=== PATIENT | female | born 1970 | race Caucasian/White ===

== ENCOUNTER 2021-12-19 11:43 | Inpatient (IN) ==
[2021-12-19 12:20] LABS: Hemoglobin 13.4 g/dL (12.0-16.0); Mean Corpuscular Hemoglobin 29.5 pg (25-34); Mean Corpuscular Hgb Conc 34.4 g/dL (32-36); Mean Corpuscular Volume 85.7 fL (80-100); Mean Platelet Volume 10.8 fL (7.4-10.4); Platelet Count 239 K/uL (130-400); RDW Standard Deviation 40.9 fL (36.4-46.3); Red Blood Count 4.55 M/uL (4.2-5.4); White Blood Count 6.95 K/uL (4.8-10.8)
[2021-12-19 12:31] LABS: Appearance Urine Cloudy (Clear); Bacteria Urine Automated Negative (Negative); Bilirubin Urine Negative (Negative); Blood Urine Negative (Negative); Color Urine Yellow; Epithelial Cell Urine Auto 20-30 /lpf (0-5); Glucose Urine UA 3+ (Negative); Ketones Urine Trace (Negative); Leukocyte Esterase Urine Negative (Negative); Nitrite Urine Negative (Negative); Protein Urine Negative (Negative); Specific Gravity Urine 1.043 (1.000-1.030); Urobilinogen Urine Negative (Negative); pH Urine 5.5 (4.5-7.5)
[2021-12-19 12:54] LABS: ALC (manual) 4.13 K/uL (1.2-3.4); ANC (manual) 2.57 K/uL (1.4-6.5); Basophils # (manual) 0.06 K/uL (0-0.2); Basophils % (manual) 0.9 %; Lymphocytes # (manual) 2.13 K/uL (1.2-3.4); Lymphocytes % (manual) 30.6 %; Monocytes # (manual) 0.19 K/uL (0.11-0.59); Monocytes % (manual) 2.7 %; Neutrophils # (manual) 2.57 K/uL (1.4-6.5); Reactive Lymphocytes % (manual) 28.8 %
[2021-12-19 12:59] LABS: Albumin Globulin Ratio 1.1 (0.9-2); Albumin Level 4.2 gm/dl (3.4-5.0); BUN Creatinine Ratio 10.8 (10-20); Bilirubin,Total 0.5 mg/dl (0.2-1.0); Calcium 9.4 mg/dl (8.5-10.1); Creatinine Clr Calc Pharmacy 71.2 ml/min; Est GFR (African American) 94.6 ml/min; Est GFR (Non-African American) 81.6 ml/min; Globulin 3.7 gm/dl (2.5-4.0); Potassium 3.7 mmol/L (3.5-5.1); Total Protein 7.9 gm/dl (6.0-8.3)
--- NOTE | 2021-12-19 13:01 | XRay Report ---
KUB CLINICAL HISTORY: Generalized abdominal pain. FINDINGS: 2 AP supine abdominal radiographs are correlated with abdominal CT dated 06/15/2021. There i s a nonobstructed abdominal bowel gas pattern. No evidence of intraperitoneal free air is seen on the se supine images. [id number] fecal retention is seen throughout the colon. Surgical clips are s een throughout the abdomen and pelvis. There are no abnormal abdominal calcifications. Phleboliths ar e noted in the pelvis. The liver appears enlarged. The skeletal structures are osteopenic and appear intact. Lumbosacral spondylosis is observed. The lung bases are clear as imaged. IMPRESSION: There is no radiographic evidence of bowel obstruction. Electronically signed by: Tiago Hadley M.D. 12/19/2021 1:00 PM
[2021-12-19] MEDS ORDERED: ONDANSETRON INJ 2 MG/ML 2 ML VIAL IV STA (13:27)
[2021-12-19] MEDS ORDERED: HYDROmorphone INJ 0.5 MG/0.5 ML SYR IV STA ×3 (13:32→22:39)
--- NOTE | 2021-12-19 13:39 | Emergency Department Note ---
History of Present Illness General Chief complaint: GI Assessment Stated complaint: LOWER ABD PAIN Time Seen by Provider: 12/19/21 13:08 Source: patient History of Present Illness Provider complaint: Abdominal pain Onset (ago): hour(s) Location: abdomen and right Radiation: back Pain Consistency: + intermittent Maximum Pain Intensity: 8 Quality: + stabbing Relieved By: + none Associated symptoms: + fever/chills and + nausea/vomiting; no chest pain, no cough or no shortness of breath This is a 51-year-old female with a prior history of SBO presenting with abdominal pain starting at approximately 6 PM yesterday. She describes it as a stabbing pain in the right lower quadrant with intermittent radiation to her back bilaterally. She rates it an 8 out of 10 in severity. No modifying factors. She also started vomiting at 2 AM this morning. She states the vomitus is green. She has not been able to keep down her meds although she is taking her insulin. She does state that her blood sugars have been running up over the past month and a half. She has been to the diabetic clinic multiple times but her sugars are running in the 600s despite their increasing her Humalog sliding scale. She stated that she had a low-grade temperature of 100 last night. She denies any cough or cold symptoms, chest pain, shortness of breath or urinary symptoms. She states that her symptoms feel similar to when she had a previous bowel obstruction. She did have 2 bowel movements this morning at 6 AM and 10 AM. She stated that they seem smaller than her usual. Home Medications Medication Instructions Recorded Confirmed Type allopurinol 100 mg tablet 100 mg PO [facility] 03/01/21 12/19/21 History atorvastatin 80 mg tablet 80 mg PO HS 03/01/21 12/19/21 History duloxetine 30 mg capsule,delayed 30 mg PO 03/01/21 12/19/21 History release sprinkle fluticasone propionate 50 1 spray INTRANASAL BID 03/01/21 12/19/21 History mcg/actuation nasal spray,suspension insulin degludec 100 unit/mL (3 10 unit SUBCUT [facility] 03/01/21 12/19/21 History mL) subcutaneous pen (Tresiba FlexTouch U-100 insulin) metoprolol succinate 25 mg 25 mg PO BID 03/01/21 12/19/21 History tablet,extended release 24 hr quetiapine 25 mg tablet 25 mg PO HS 03/01/21 12/19/21 History ropinirole 0.25 mg tablet 0.25 mg PO HS 03/01/21 12/19/21 History tizanidine 4 mg capsule (Zanaflex) 4 mg PO BID 03/01/21 12/19/21 History famotidine 20 mg tablet 20 mg PO BID #20 tab 03/13/21 12/19/21 Rx docusate sodium 100 mg capsule 100 mg PO BID #30 cap 05/14/21 12/19/21 Rx (Colace) insulin aspart U-100 100 unit/mL 0 sliding scale dose SUBCUT UD 12/19/21 12/19/21 History (3 mL) subcutaneous pen ondansetron 8 mg disintegrating 8 mg TRANSLINGUAL DAILY PRN 12/19/21 12/19/21 History tablet Allergies Allergy/AdvReac Type Severity Reaction Status Date / Time ciprofloxacin [From Cipro] AdvReac Unknown Verified 12/19/21 15:07 Past Med/Surg History Medical History Anxiety Depression Diverticulitis Endometriosis GERD (gastroesophageal reflux disease) Migraine SBO (small bowel obstruction) Surgical History H/O hernia repair H/O tubal ligation History of bowel resection "due to SBO" History of hysterectomy S/P cholecystectomy Family History (Updated 12/19/21 @ 19:09 by Shruthi Castle DO) Father Crohn's disease Parkinsons Social History (Updated 12/19/21 @ 19:09 by Shruthi Castle DO) Smoking Status: Never smoker Hx Alcohol Use: No Hx Substance Use: No Preferred Language: Estonian marital status: Current Living Situation: Spouse current occupational status: disabled Feels Safe at Home: Yes Review of Systems See HPI for pertinent positives & negatives. and A total of 10 systems reviewed and were otherwise negative Physical Exam Vital Signs Vital Signs - 24 hr 12/19/21 11:47 12/19/21 13:30 12/19/21 15:12 Temperature 36.2 C L Temperature Source Temporal Artery Scan Pulse Rate 112 H Pulse Rate [Left Apical] 129 H 150 H Pulse Rhythm [Left Apical] Regular Pulse Strength [Left Apical] Respiratory Rate 16 22 20 Respiratory Effort / Characteristics Non-Labored Spontaneous Non-Labored Spontaneous Respiratory Depth Normal Normal Respiratory Pattern Regular Blood Pressure 147/87 H Blood Pressure [Right Arm] 141/101 H 172/117 H Blood Pressure Mean 107 Blood Pressure Mean [Right Arm] 114 135 Blood Pressure Position Sitting Blood Pressure Position [Right Arm] Lying Pulse Oximetry 98 97 97 Oxygen Delivery Method Room Air Room Air Sepsis Recent Fever Within 48 Hours No Sepsis New/Unexplained Change in Mental Status N/A Sepsis Action Taken by Nursing No Action Required 12/19/21 17:01 12/19/21 19:00 Temperature 36.9 C Temperature Source Oral Pulse Rate Pulse Rate [Left Apical] 123 H 82 Pulse Rhythm [Left Apical] Regular Pulse Strength [Left Apical] Normal Respiratory Rate 20 20 Respiratory Effort / Characteristics Non-Labored Spontaneous Respiratory Depth Normal Respiratory Pattern Blood Pressure Blood Pressure [Right Arm] 171/117 H Blood Pressure Mean Blood Pressure Mean [Right Arm] 135 Blood Pressure Position Blood Pressure Position [Right Arm] Pulse Oximetry 97 96 Oxygen Delivery Method Room Air Room Air Sepsis Recent Fever Within 48 Hours Sepsis New/Unexplained Change in Mental Status Sepsis Action Taken by Nursing Constitutional: Vital signs reviewed. Rocking back and forth in pain. Eyes: Pupils are equal round reactive to light. Conjunctiva are noninjected. ENT: Pharynx is clear without erythema or exudate. Mucous membranes are dry. Neck supple without meningeal signs. Respiratory: Clear to auscultation bilaterally. Breath sounds are equal bilaterally. Cardiovascular: Mild tachycardia. Regular rhythm. GI: Soft, nondistended with tenderness in the right lower quadrant with voluntary guarding. Bowel sounds are present. Musculoskeletal: No peripheral edema. No lower extremity tenderness. Integumentary: No cyanosis. or jaundice. Neurological: The patient is awake and alert. No focal deficits. Psychiatric: Normal affect. Course Administered Medications Discontinued Medications Acetaminophen (Acetaminophen 1000 Mg/100 Ml Iv) 1,000 mg IV ONE STA Stop: 12/19/21 17:43 Last Admin: 12/19/21 17:53 Dose: 1,000 mg Documented by: [id number] Hydromorphone HCl (Hydromorphone Inj 0.5 Mg/0.5 Ml Syr) 0.5 mg IV NOW STA Stop: 12/19/21 13:33 Last Admin: 12/19/21 13:45 Dose: 0.5 mg Documented by: [id number] Hydromorphone HCl (Hydromorphone Inj 0.5 Mg/0.5 Ml Syr) 0.25 mg IV NOW STA Stop: 12/19/21 16:14 Last Admin: 12/19/21 16:46 Dose: 0.25 mg Documented by: [id number] Hyoscyamine (Hyoscyamine Sulfate 0.125 Mg Tab) 0.125 mg SL NOW STA Stop: 12/19/21 14:54 Last Admin: 12/19/21 15:26 Dose: 0.125 mg Documented by: [id number] Sodium Chloride (Nss 1000ml) 1,000 mls @ 999 mls/hr IV .Q1H1M ONE Stop: 12/19/21 14:49 Last Infusion: 12/19/21 16:13 Dose: 0 mls/hr Documented by: [id number] Admin: 12/19/21 14:28 Dose: 999 mls/hr Documented by: [id number] Prochlorperazine (Compazine) 2 mls @ 1 mls/min IV ONE ONE Stop: 12/19/21 17:42 Last Admin: 12/19/21 17:53 Dose: 1 mls/min Documented by: [id number] Insulin Human Regular (Novolin-R Insulin Per Unit Charge) 7 units IV NOW STA Stop: 12/19/21 13:50 Last Admin: 12/19/21 14:28 Dose: 7 units Documented by: [id number] Cosigned by: [id number] Lorazepam (Lorazepam 2 Mg/1 Ml Vial) 0.25 mg IV NOW STA Stop: 12/19/21 16:14 Last Admin: 12/19/21 16:46 Dose: 0.25 mg Documented by: [id number] Ondansetron HCl (Ondansetron Inj 2 Mg/Ml 2 Ml Vial) 4 mg IV NOW STA Stop: 12/19/21 13:28 Last Admin: 12/19/21 13:45 Dose: 4 mg Documented by: [id number] Medical Decision Making Differential Diagnosis Small bowel obstruction, partial bowel obstruction, dehydration, gastritis, gastroparesis, electrolyte abnormality, adhesions Medical Records Attestation: I reviewed the patient's medical records. I did perform a limited focused review of portions of the patient's old chart on the electronic medical record. The patient was seen here in June of last year for similar abdominal pain and vomiting. She had a CT of the abdomen pelvis and did not have a bowel obstruction at that time. She was discharged after evaluation in the ED. Home Medications Current Medication List: was personally reviewed by me Laboratory Data Result diagrams: 12/19/21 12:01 12/19/21 12:01 Lab Results 12/19/21 12/19/21 12/19/21 Range/Units 12:01 12:01 12:01 WBC 6.95 (4.8-10.8) K/uL RBC 4.55 (4.2-5.4) M/uL Hgb 13.4 (12.0-16.0) g/dL Hct 39.0 (37-47) % MCV 85.7 (80-100) fL MCH 29.5 (25-34) pg MCHC 34.4 (32-36) g/dL RDW Std Deviation 40.9 (36.4-46.3) fL RDW Coeff of Bernabe 13.0 (11.5-14.5) % Plt Count 239 (130-400) K/uL MPV 10.8 H (7.4-10.4) fL Neutrophils % (Manual) 37.0 % Lymphocytes % (Manual) 30.6 % Reactive Lymphs % (Man) 28.8 % Monocytes % (Manual) 2.7 % Basophils % (Manual) 0.9 % Neutrophils # (Manual) 2.57 (1.4-6.5) K/uL Total Absolute Neuts 2.57 (1.4-6.5) K/uL Lymphocytes # (Manual) 2.13 (1.2-3.4) K/uL Reactive Lymphs # 2.00 K/uL Total Abs Lymphocytes 4.13 H (1.2-3.4) K/uL Monocytes # (Manual) 0.19 (0.11-0.59) K/uL Basophils # (Manual) 0.06 (0-0.2) K/uL Sodium 131 L (136-145) mmol/L Potassium 3.7 (3.5-5.1) mmol/L Chloride 96 L (98-107) mmol/L Carbon Dioxide 25 (21-32) mmol/L Anion Gap 10 (3-11) BUN 9 (6-23) mg/dl Creatinine 0.83 (0.6-1.2) mg/dl Est Cr Clr Drug Dosing 71.2 ml/min Est GFR ( Amer) 94.6 ml/min Est GFR (Non-Af Amer) 81.6 ml/min BUN/Creatinine Ratio 10.8 (10-20) Glucose 458 H* (70-99(Fasting)) mg/dl POC Glucose (70-99) mg/dl Calcium 9.4 (8.5-10.1) mg/dl Total Bilirubin 0.5 (0.2-1.0) mg/dl AST 15 (13-39) U/L ALT 16 (7-52) U/L Alkaline Phosphatase 186 H (34-104) U/L Total Protein 7.9 (6.0-8.3) gm/dl Albumin 4.2 (3.4-5.0) gm/dl Globulin 3.7 (2.5-4.0) gm/dl Albumin/Globulin Ratio 1.1 (0.9-2) Lipase 55 (11-82) U/L Urine Color Yellow Urine Appearance Cloudy A (Clear) Urine pH 5.5 (4.5-7.5) Ur Specific Steward 1.043 H (1.000-1.030) Urine Protein Negative (Negative) Urine Glucose (UA) 3+ H (Negative) Urine Ketones Trace H (Negative) Urine Blood Negative (Negative) Urine Nitrite Negative (Negative) Urine Bilirubin Negative (Negative) Urine Urobilinogen Negative (Negative) Ur Leukocyte Esterase Negative (Negative) Urine WBC (Auto) 10-30 H (0-5) /hpf Urine RBC (Auto) 10-30 H (0-4) /hpf U Hyaline Cast (Auto) 1-5 (0-5) /lpf U Epithel Cells (Auto) 20-30 H (0-5) /lpf Urine Bacteria (Auto) Negative (Negative) Urine Crystals Talc (None Prsent) 12/19/21 Range/Units 15:09 WBC (4.8-10.8) K/uL RBC (4.2-5.4) M/uL Hgb (12.0-16.0) g/dL Hct (37-47) % MCV (80-100) fL MCH (25-34) pg MCHC (32-36) g/dL RDW Std Deviation (36.4-46.3) fL RDW Coeff of Bernabe (11.5-14.5) % Plt Count (130-400) K/uL MPV (7.4-10.4) fL Neutrophils % (Manual) % Lymphocytes % (Manual) % Reactive Lymphs % (Man) % Monocytes % (Manual) % Basophils % (Manual) % Neutrophils # (Manual) (1.4-6.5) K/uL Total Absolute Neuts (1.4-6.5) K/uL Lymphocytes # (Manual) (1.2-3.4) K/uL Reactive Lymphs # K/uL Total Abs Lymphocytes (1.2-3.4) K/uL Monocytes # (Manual) (0.11-0.59) K/uL Basophils # (Manual) (0-0.2) K/uL Sodium (136-145) mmol/L Potassium (3.5-5.1) mmol/L Chloride (98-107) mmol/L Carbon Dioxide (21-32) mmol/L Anion Gap (3-11) BUN (6-23) mg/dl Creatinine (0.6-1.2) mg/dl Est Cr Clr Drug Dosing ml/min Est GFR ( Amer) ml/min Est GFR (Non-Af Amer) ml/min BUN/Creatinine Ratio (10-20) Glucose (70-99(Fasting)) mg/dl POC Glucose 218 H (70-99) mg/dl Calcium (8.5-10.1) mg/dl Total Bilirubin (0.2-1.0) mg/dl AST (13-39) U/L ALT (7-52) U/L Alkaline Phosphatase (34-104) U/L Total Protein (6.0-8.3) gm/dl Albumin (3.4-5.0) gm/dl Globulin (2.5-4.0) gm/dl Albumin/Globulin Ratio (0.9-2) Lipase (11-82) U/L Urine Color Urine Appearance (Clear) Urine pH (4.5-7.5) Ur Specific Steward (1.000-1.030) Urine Protein (Negative) Urine Glucose (UA) (Negative) Urine Ketones (Negative) Urine Blood (Negative) Urine Nitrite (Negative) Urine Bilirubin (Negative) Urine Urobilinogen (Negative) Ur Leukocyte Esterase (Negative) Urine WBC (Auto) (0-5) /hpf Urine RBC (Auto) (0-4) /hpf U Hyaline Cast (Auto) (0-5) /lpf U Epithel Cells (Auto) (0-5) /lpf Urine Bacteria (Auto) (Negative) Urine Crystals (None Prsent) Imaging Data Radiologist's Impression: KUB X-Ray 12/19/21 11:52 KUB CLINICAL HISTORY: Generalized abdominal pain. FINDINGS: 2 AP supine abdominal radiographs are correlated with abdominal CT dated 06/15/2021. There is a nonobstructed abdominal bowel gas pattern. No evidence of intraperitoneal free air is seen on these supine images. [id number] fecal retention is seen throughout the colon. Surgical clips are seen throughout the abdomen and pelvis. There are no abnormal abdominal calcifications. Phleboliths are noted in the pelvis. The liver appears enlarged. The skeletal structures are osteopenic and appear intact. Lumbosacral spondylosis is observed. The lung bases are clear as imaged. IMPRESSION: There is no radiographic evidence of bowel obstruction. Electronically signed by: Tiago Hadley M.D. 12/19/2021 1:00 PM Abdomen/Pelvis CT 12/19/21 13:27 CT abd pelvis wo con CLINICAL HISTORY: intractable n/v. hx of sbo. severe lower abd pain TECHNIQUE: Helical axial images of the abdomen and pelvis were obtained. Automated dose lowering techniques and/or adjustment according to patient size were utilized for this exam. This exam was performed without intravenous contrast. COMPARISON: Comparison is made to CT abdomen pelvis 06/15/2021 FINDINGS: Lower chest: No acute abnormality Liver: Hepatic steatosis is noted. Gallbladder and biliary tree: Patient is status post cholecystectomy. No intra- or extrahepatic biliary ductal dilation. Pancreas: Fatty replacement of the pancreas is seen. Spleen: Unremarkable. Adrenals: Unremarkable. Kidneys and ureters: Unremarkable. Bladder: Bladder contents are minimally hyperdense, nonspecific. Reproductive organs: Patient is status post hysterectomy. Bowel: Diverticulosis is seen without evidence of diverticulitis. Postsurgical changes are noted in the small bowel. There is a small hiatal hernia. Proximal jejunal loops are prominent, measuring up to 28 mm, but nondilated. Lymph nodes Retroperitoneal: Unremarkable. Mesenteric: Unremarkable. Pelvic: Unremarkable. Peritoneum: A hernia mesh is noted in the anterior abdominal wall. Vessels: Unremarkable. Abdominal wall: Unremarkable. Bones: Degenerative changes in the visualized spine. IMPRESSION: 1. No evidence of small bowel obstruction. Postsurgical changes are seen in the small bowel. 2. Diverticulosis without diverticulitis. 3. Mild hyperdensity in bladder contents, correlation with urinalysis is recommended. 4. Additional findings as above. ACT 112: Negative or not required by law. Electronically signed by: Abhishek Harkins M.D. 12/19/2021 2:32 PM ECG Data Attestation: I personally reviewed and interpreted this ECG as follows: Indication: + abdominal pain, + tachycardia and + vomiting Rate (beats per minute): 119 Rhythm: + sinus tachycardia ECG [place]: + Normal ECG ST segments: no ST elevation ECG Findings: no PVCs MDM Narrative I did evaluate the patient as noted above. IV access was established. She was treated with IV Zofran and Dilaudid. I did place an order for continuous cardia c monitoring. The monitor showed sinus tachycardia at rate of 103 bpm. Twelve- lead EKG per my interpretation demonstrates no acute ischemic symptoms. She has sinus tachycardia. I did personally reviewed the images of the patient's KUB x- ray as described above. She does not have evidence of obstruction. I did order a urine analysis. She has some WBCs as well as RBCs and epithelial cells with out other signs of UTI. She has 3+ glucose and trace ketones. I did review the patient's blood work as noted in the electronic medical record. Her white count is not elevated. Hemoglobin is 13.4. Platelet is 239. Electrolytes demonstrate a sodium of 131 which is likely pseudohyponatremia from her glucose of 458. I did treat the patient with normal saline 1 L IV and regular insulin 7 units IV. Chloride is 96. LFTs are unremarkable other than a alk phos of 186. Lipase is 55. After discussion with the patient, I did order a CT of the abdomen and pelvis. I did review the images myself as well as the radiology report as described above. There is no evidence of acute intra-abdominal p rocess or bowel obstruction. We were able to get records from the [facility] system. Apparently she was at [facility] 2 days ago and had a negative CT of the abdomen pelvis at that time. She did not mention this earlier. She is currently still writhing in pain and requesting more pain medication. She is continually tachycardic as well. It is unclear whether or not narcotics would be beneficial for her given that she has decreased GI mobility and this could certainly exacerbate it. As an alternative she requested an NG tube. It was explained to her that there was no current indication for an NG tube but she insisted stating that it has helped her in the past. The potential risks were explained to her including visceral rupture and placement in the lungs or other complications. She did agree to NG tube placement which was done by the nurse without complication. She had no relief of her symptoms. She is requesting admission as she states that she cannot keep anything down and is having intractable pain. Repeat blood sugar is 218. The case was discussed with the hospitalist and hospice case manager. A Covid test was obtained. Resident Physician Supervision Note: I did perform an independent evaluation and examination of this patient as described. I also saw this patient in conjunction with the resident, Dr. Hammond, and guided management for the patient. Impression & Plan Intractable right lower quadrant abdominal pain, Intractable vomiting with nausea, Acute hyperglycemia Discharge Plan Visit Data Chief Complaint: GI Assessment Stated Complaint: LOWER ABD PAIN ED Provider: Tate Amor ED Midlevel Provider: Lauro Hammond Discharge Problem: Intractable right lower quadrant abdominal pain, Intractable vomiting with nausea, Acute hyperglycemia Patient Disposition: Being Evaluated by Hospitalist Forms Stand Alone Forms: My [facility], Virtual Emergency Department, Important Visit Information Prescriptions Prescriptions: No Action quetiapine 25 mg Tablet 25 mg PO HS RF: 0 atorvastatin 80 mg Tablet 80 mg PO HS RF: 0 allopurinol 100 mg Tablet 100 mg PO QAM RF: 0 ropinirole 0.25 mg Tablet 0.25 mg PO HS RF: 0 metoprolol succinate 25 mg Tablet Extended Release 24 Hr 25 mg PO BID RF: 0 fluticasone propionate [Flonase] 50 mcg/actuation [place],Suspension 1 spray INTRANASAL BID RF: 0 tizanidine [Zanaflex] 4 mg Capsule 4 mg PO BID RF: 0 Tresiba FlexTouch U-100 100 unit/mL (3 mL) insulin pen 10 unit SUBCUT QAM RF: 0 duloxetine 30 mg Capsule, Delayed Rel Sprinkle 30 mg PO HS RF: 0 docusate sodium [Colace] 100 mg capsule 100 mg PO BID Qty: 30 RF: 0 ondansetron 8 mg tablet,disintegrating 8 mg translingual DAILY PRN (Reason: Nausea And Vomiting) RF: 0 insulin aspart U-100 100 unit/mL (3 mL) insulin pen 0 sliding scale dose SUBCUT UD RF: 0 famotidine 20 mg tablet 20 mg PO BID Qty: 20 RF: 0 Referrals Referrals: Martin Nicholas PA-C [Outside Practitioners] - Resident Activity Tracking Resident Involvement: Resident Care Provided Care Provided: Adult ED Addendum December 19, 2021 16:55 I participated in the care of this patient. Please see attending Dr. Amor's documentation.
[2021-12-19] MEDS ORDERED: SODIUM CHLORIDE 0.9% 1000ML 1,000 ML IV ONE (13:49)
[2021-12-19] MEDS ORDERED: NovoLIN-R INSULIN PER UNIT CHARGE IV STA (13:49)
--- NOTE | 2021-12-19 14:33 | CT Scan Report ---
CT abd pelvis wo con CLINICAL HISTORY: intractable n/v. hx of sbo. severe lower abd pain TECHNIQUE: Helical axial images of the abdomen and pelvis were obtained. Automated dose lowering tech niques and/or adjustment according to patient size were utilized for this exam. This exam was perfor med without intravenous contrast. COMPARISON: Comparison is made to CT abdomen pelvis 06/15/2021 FINDINGS: Lower chest: No acute abnormality Liver: Hepatic steatosis is noted. Gallbladder and biliary tree: Patient is status post cholecystectomy. No intra- or extrahepatic bilia ry ductal dilation. Pancreas: Fatty replacement of the pancreas is seen. Spleen: Unremarkable. Adrenals: Unremarkable. Kidneys and ureters: Unremarkable. Bladder: Bladder contents are minimally hyperdense, nonspecific. Reproductive organs: Patient is status post hysterectomy. Bowel: Diverticulosis is seen without evidence of diverticulitis. Postsurgical changes are noted in t he small bowel. There is a small hiatal hernia. Proximal jejunal loops are prominent, measuring up to 28 mm, but nondilated. Lymph nodes Retroperitoneal: Unremarkable. Mesenteric: Unremarkable. Pelvic: Unremarkable. Peritoneum: A hernia mesh is noted in the anterior abdominal wall. Vessels: Unremarkable. Abdominal wall: Unremarkable. Bones: Degenerative changes in the visualized spine. IMPRESSION: 1. No evidence of small bowel obstruction. Postsurgical changes are seen in the small bowel. 2. Diverticulosis without diverticulitis. 3. Mild hyperdensity in bladder contents, correlation with urinalysis is recommended. 4. Additional findings as above. ACT 112: Negative or not required by law. Electronically signed by: Abhishek Harkins M.D. 12/19/2021 2:32 PM
[2021-12-19] MEDS ORDERED: HYOSCYAMINE SULFATE 0.125 MG TAB SL STA (14:53)
[2021-12-19] MEDS ORDERED: LORazepam 2 MG/1 ML VIAL IV STA (16:13)
[2021-12-19] MEDS ORDERED: PROCHLORPERAZINE 2 ML IV ONE (17:41)
[2021-12-19] MEDS ORDERED: ACETAMINOPHEN 1000 MG/100 ML IV IV STA (17:42)
--- NOTE | 2021-12-19 19:09 | History & Physical Report ---
Date of Service December 19, 2021 Assessment & Plan (1) Intractable right lower quadrant abdominal pain: Plan: Severe abdominal pain followed by vomiting and some loose stool. 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 Last surgery was hernia repair in 2010. Since that time she has noted some issues with SBO but with a higher frequency during the last two years. Incidentally, she also reports uncontrolled blood sugar during this time. She doesn't feel these are related and has no known h/o gastroparesis. She asked for an NG tube to be placed when the narcotic medication was not improving the abdominal pain. This didn't return much but there was a bloody look to what was suctioned. She reports feeling much better after this was placed. Will plan to continue the NG tube at this time and provide supportive care including IV fluids. Will consult surgery with her history of SBO and improvement with NG tube placement. Although I don't think she is actively bleeding internally, will add protonix 40 IV BID with the return of blood after her NG tube, and will consult GI. Cont pepcid per home regimen. (2) Intractable vomiting with nausea: Plan: Improved with NG tube placement, antiemetics. Cont current care. Cont IVF and replace lytes as needed. (3) DMII (diabetes mellitus, type 2): Plan: Uncontrolled A1C os 8.4 in Oct 2021 with it being around 9 since Fall 2020. Hold her home insulin and continue her on Lantus 10 Units qHS (50% of recommended dose for her weight as she is NPO) and Novolog for correction factor. Will need to add carb coverage once she starts eating again. (4) Elevated blood pressure reading: Plan: situational as patient is in moderate distress with her abdominal pain. Cont Toprol per home regimen. (5) Tachycardia: Plan: Likely related to dehydration and stress/pain. Cont IVF overnight and check/replete lytes as needed in am. (6) Anxiety and depression: Plan: Chronic, stable. Cont Cymbalta and Seroquel per outpatient regimen. (7) Bipolar disorder: Plan: Chronic, stable. Cont seroquel per outpatient med regimen. (8) DVT prophylaxis: Plan: SCDs, no chemoprophylaxis with blood in suction canister. Full Code Dispo-to PCU DO [facility] History of Present Illness Chief Complaint: abdominal pain Primary Care Provider: King Braun MD worsened acute abdominal pain started 6p last night, followed by loose stool and then vomiting supper was at 3pm, sausage and potatoes au gratin-no one else sick around her with any gastroenteritis symptoms. she continued to produce bilious vomitus that was green all night and had severe nausea and centralized abdominal pain pain radiated around to her posterior like a belt this was exactly the same presentation she had last year 8 times and then 6 times the year before. Fever 100.1F last night some loose stool, not described as diarrhea. no CP or SOB nausea is not as bad curently and she reports the NGT, which was elective as no SBO is seen on imaging, has helped her pain dilaudid is also helping. no urinary issues. last surgery was hernia repair which was 2010 2008-adhesion removal where she had an intraoperative complication resulting in a partial bowel resection. she reports her blood sugars have been high lately and she presented with a sugar close to 500 today, better with IV insulin given in the ER reports no recent changes in her medications. Allergies Allergy/AdvReac Type Severity Reaction Status Date / Time ciprofloxacin [From Cipro] AdvReac Unknown Verified 12/19/21 15:07 Home Medications Medication Instructions Recorded Confirmed Type allopurinol 100 mg tablet 100 mg PO QAM 03/01/21 12/19/21 History atorvastatin 80 mg tablet 80 mg PO HS 03/01/21 12/19/21 History duloxetine 30 mg capsule,delayed 30 mg PO HS 03/01/21 12/19/21 History release sprinkle fluticasone propionate 50 1 spray INTRANASAL BID 03/01/21 12/19/21 History mcg/actuation nasal spray,suspension insulin degludec 100 unit/mL (3 10 unit SUBCUT QAM 03/01/21 12/19/21 History mL) subcutaneous pen (Tresiba FlexTouch U-100 insulin) quetiapine 25 mg tablet 25 mg PO HS 03/01/21 12/19/21 History ropinirole 0.25 mg tablet 0.25 mg PO HS 03/01/21 12/19/21 History tizanidine 4 mg capsule (Zanaflex) 4 mg PO BID 03/01/21 12/19/21 History famotidine 20 mg tablet 20 mg PO BID #20 tab 03/13/21 12/19/21 Rx docusate sodium 100 mg capsule 100 mg PO BID #30 cap 05/14/21 12/19/21 Rx (Colace) insulin aspart U-100 100 unit/mL 0 sliding scale dose SUBCUT UD 12/19/21 12/19/21 History (3 mL) subcutaneous pen magnesium oxide 250 mg PO DAILY 12/19/21 12/19/21 History metoprolol succinate 50 mg 50 mg PO BID 12/19/21 12/19/21 History tablet,extended release 24 hr ondansetron 8 mg disintegrating 8 mg TRANSLINGUAL DAILY PRN 12/19/21 12/19/21 History tablet potassium chloride 20 mEq 20 meq PO DAILY 12/19/21 12/19/21 History tablet,extended release(part/cryst) (Klor-Con M) Past Med/Surg History Medical History (Updated 12/19/21 @ 20:26 by Shruthi Castle DO) Anxiety and depression Bipolar disorder Depression Diverticulitis DMII (diabetes mellitus, type 2) Endometriosis GERD (gastroesophageal reflux disease) Migraine SBO (small bowel obstruction) Surgical History H/O hernia repair H/O tubal ligation History of bowel resection "due to SBO" History of hysterectomy S/P cholecystectomy Family History Father Crohn's disease Parkinsons Social History Smoking Status: Never smoker Hx Alcohol Use: No Hx Substance Use: No Preferred Language: Egyptian marital status: Current Living Situation: Spouse current occupational status: disabled Feels Safe at Home: Yes Review of Systems Review of Systems: All systems were reviewed and negative except as indicated in HPI above. Physical Exam Physical Exam: CONSTITUTIONAL: WNWD, vitals as above, generally well- appearing, NAD EYES: normal conjunctivae, no scleral icterus, eyes are puffy but not red. ENT: external ear and nose normal, NGT in place with bloody output. NECK: trachea midline RESPIRATORY: clear to auscultation bilaterally, no crackles, rales or wheezes, normal respiratory effort CARDIOVASCULAR: tachy rate and rhythm, S1 and 2 heard without murmurs, gallops or rubs, no JVD, no peripheral edema CHEST: inspection of chest was normal, there is a port present on the right anterior chest. GASTROINTESTINAL: soft, TTP worse on the right side, ND, no guarding MUSCULOSKELETAL: strength 5/5 throughout, head is normocephalic and atraumatic,a mbulatory SKIN: warm and dry NEUROLOGIC: CN 2-12 grossly intact, no sensory deficit, normal cognition, normal speech, some resting tremors in her legs. PSYCHIATRIC: alert cooperative and oriented to person, place and time. Euthymic mood, makes good eye contact, language grossly intact, recent and remote memory grossly intact. Results & Data Results & Data ([facility]) Vital Signs (Past 12 Hours) Vital Signs Temp Pulse Pulse Resp BP BP Pulse Ox 12/19/21 17:01 123 H 20 97 12/19/21 15:12 150 H 20 172/117 H 97 12/19/21 13:30 129 H 22 141/101 H 97 12/19/21 11:47 36.2 C L 112 H 16 147/87 H 98 Laboratory Results Short CBC 12/19/21 Range/Units 12:01 WBC 6.95 (4.8-10.8) K/uL Hgb 13.4 (12.0-16.0) g/dL Hct 39.0 (37-47) % Plt Count 239 (130-400) K/uL BMP 12/19/21 12:01 Sodium 131 L Potassium 3.7 Chloride 96 L Carbon Dioxide 25 BUN 9 Creatinine 0.83 Glucose 458 H* Calcium 9.4 Liver Function 12/19/21 Range/Units 12:01 Total Bilirubin 0.5 (0.2-1.0) mg/dl AST 15 (13-39) U/L ALT 16 (7-52) U/L Alkaline Phosphatase 186 H (34-104) U/L Albumin 4.2 (3.4-5.0) gm/dl Urine 12/19/21 Range/Units 12:01 Urine Color Yellow Urine Appearance Cloudy A (Clear) Urine pH 5.5 (4.5-7.5) Ur Specific [place] 1.043 H (1.000-1.030) Urine Protein Negative (Negative) Urine Glucose (UA) 3+ H (Negative) Diagnostic Findings KUB X-Ray 12/19/21 11:52 KUB CLINICAL HISTORY: Generalized abdominal pain. FINDINGS: 2 AP supine abdominal radiographs are correlated with abdominal CT dated 06/15/2021. There is a nonobstructed abdominal bowel gas pattern. No evidence of intraperitoneal free air is seen on these supine images. [id number] fecal retention is seen throughout the colon. Surgical clips are seen throughout the abdomen and pelvis. There are no abnormal abdominal calcifications. Phleboliths are noted in the pelvis. The liver appears enlarged. The skeletal structures are osteopenic and appear intact. Lumbosacral spondylosis is observed. The lung bases are clear as imaged. IMPRESSION: There is no radiographic evidence of bowel obstruction. Electronically signed by: Tiago Hadley M.D. 12/19/2021 1:00 PM Abdomen/Pelvis CT 12/19/21 13:27 CT abd pelvis wo con CLINICAL HISTORY: intractable n/v. hx of sbo. severe lower abd pain TECHNIQUE: Helical axial images of the abdomen and pelvis were obtained. Automated dose lowering techniques and/or adjustment according to patient size were utilized for this exam. This exam was performed without intravenous contrast. COMPARISON: Comparison is made to CT abdomen pelvis 06/15/2021 FINDINGS: Lower chest: No acute abnormality Liver: Hepatic steatosis is noted. Gallbladder and biliary tree: Patient is status post cholecystectomy. No intra- or extrahepatic biliary ductal dilation. Pancreas: Fatty replacement of the pancreas is seen. Spleen: Unremarkable. Adrenals: Unremarkable. Kidneys and ureters: Unremarkable. Bladder: Bladder contents are minimally hyperdense, nonspecific. Reproductive organs: Patient is status post hysterectomy. Bowel: Diverticulosis is seen without evidence of diverticulitis. Postsurgical changes are noted in the small bowel. There is a small hiatal hernia. Proximal jejunal loops are prominent, measuring up to 28 mm, but nondilated. Lymph nodes Retroperitoneal: Unremarkable. Mesenteric: Unremarkable. Pelvic: Unremarkable. Peritoneum: A hernia mesh is noted in the anterior abdominal wall. Vessels: Unremarkable. Abdominal wall: Unremarkable. Bones: Degenerative changes in the visualized spine. IMPRESSION: 1. No evidence of small bowel obstruction. Postsurgical changes are seen in the small bowel. 2. Diverticulosis without diverticulitis. 3. Mild hyperdensity in bladder contents, correlation with urinalysis is recommended. 4. Additional findings as above. ACT 112: Negative or not required by law. Electronically signed by: Abhishek Harkins M.D. 12/19/2021 2:32 PM Code Status & VTE Plan VTE Prophylaxis Plan VTE Prophylaxis will be ordered: Yes
[2021-12-19] MEDS ORDERED: GLUCOSE 10 TABS/TUBE PO PRN (21:52)
[2021-12-19] MEDS ORDERED: DEXTROSE 50% 50 ML SYRINGE IV PRN (21:52)
[2021-12-19] MEDS ORDERED: INSULIN GLARGINE SOLOSTAR 100 UNITS/ML 3 ML PEN SC SCH (21:52)
[2021-12-19] MEDS ORDERED: CARBOHYDRATES FOR HYPOGLYCEMIA PO PRN (21:52)
[2021-12-19] MEDS ORDERED: GLUCAGON FOR INJ 1 MG VIAL SQ PRN (21:52)
[2021-12-19] MEDS ORDERED: POLYETHYLENE (MIRALAX) 17 GM PACK PO PRN (21:52)
[2021-12-19] MEDS ORDERED: GLUCOSE 40% GEL 15 GM TUBE PO PRN (21:52)
[2021-12-19] MEDS: FAMOTIDINE 20 MG in SYRINGE 3 ML IV SCH (22:20)
[2021-12-19] MEDS: METOPROLOL SUCC 50MG EXT REL TAB PO SCH (22:20)
[2021-12-19] MEDS: PANTOprazole 40 MG in SYRINGE 0 ML IV SCH (22:20)
[2021-12-19] MEDS: QUEtiapine FUMARATE 25 MG TABLET PO SCH (22:20)
[2021-12-19] MEDS: rOPINIRole HCL 0.25 MG TABLET PO SCH (22:20)
[2021-12-19] MEDS: SODIUM CHLORIDE 0.9% 1000ML 1,000 ML IV SCH (22:21)
[2021-12-19] MEDS: DULoxetine HCL 30 MG CAP PO SCH (22:21)
[2021-12-19] MEDS: INSULIN ASPART PER UNIT SC SCH (22:33)
[2021-12-20] MEDS: ACETAMINOPHEN 1,000 MG/100 ML VIAL IV SCH ×3 (02:11→17:09)
[2021-12-20] MEDS ORDERED: HEPARIN 100 UNIT/ML 5ML FLUSH FLUSH PRN ×2 (04:02→09:08)
[2021-12-20] MEDS ORDERED: HYDROmorphone INJ 0.5 MG/0.5 ML SYR IV STA (04:18)
[2021-12-20] MEDS: SODIUM CHLORIDE 0.9% 1000ML 1,000 ML IV SCH (04:42)
[2021-12-20 06:29] LABS: Albumin Globulin Ratio 1.1 (0.9-2); Albumin Level 3.3 gm/dl (3.4-5.0); BUN Creatinine Ratio 11.8 (10-20); Bilirubin,Total 0.4 mg/dl (0.2-1.0); Calcium 7.9 mg/dl (8.5-10.1); Creatinine Clr Calc Pharmacy 89.5 ml/min; Est GFR (African American) 117.4 ml/min; Est GFR (Non-African American) 101.3 ml/min; Globulin 2.9 gm/dl (2.5-4.0); Magnesium 1.4 mg/dl (1.7-2.4); Phosphorus 3.7 mg/dl (2.5-4.9); Potassium 3.4 mmol/L (3.5-5.1); Total Protein 6.2 gm/dl (6.0-8.3)
[2021-12-20 07:39] LABS: Estimated Average Glucose 292 mg/dl; Hemoglobin A1C 11.8 % (4.5-5.6)
[2021-12-20] MEDS: METOPROLOL SUCC 50MG EXT REL TAB PO SCH ×2 (07:57→21:29)
[2021-12-20] MEDS: POTASSIUM CHLORIDE CRTAB 20 MEQ TABCR PO SCH (07:58)
[2021-12-20] MEDS: INSULIN ASPART PER UNIT SC SCH ×4 (07:58→20:35)
[2021-12-20] MEDS: PANTOprazole 40 MG in SYRINGE 0 ML IV SCH ×2 (07:58→20:20)
[2021-12-20] MEDS: FAMOTIDINE 20 MG in SYRINGE 3 ML IV SCH ×2 (09:37→21:29)
--- NOTE | 2021-12-20 10:43 | Gastrointestinal Consultation ---
Date of Consultation December 20, 2021 Assessment & Plan (1) Intractable vomiting with nausea: (2) Intractable right lower quadrant abdominal pain: * Small bowel series to r/o small bowel disease/obstruction. * Will consider other testing such as repeat EGD or gastric emptying study base on these results. * Pain is most likely from abdominal adhesive disease. Supervising Physician Co-Signing Physician Notes I performed a history and physical examination of the patient today, including specifically on physical exam - soft abdomen. I have discussed the patient's management with the advanced practitioner. Please refer to the nurse practitioner's note for the documented findings and plan of care. Complex prior surgical Hx with heavy burden of intraabdominal adhesions causing recurrent SBO. Now feels better after NG decompression. No signs of ongoing SBO. Recommend: SBFT. History of Present Illness Reason for Consultation: Intractable nausea, abdominal pain Requesting Physician: Dr. Feliz Attending Physician: Erica Feliz MD History of Present Illness Ms. Rick Jordan is a 51 yr old female pt of Dr. King Braun with a hx of DM, Anxiety, depression, Diverticulitis, GERD, Migraines, Endometriosis, multiple prior abd surgeries including hysterectomy, cholecystectomy, bowel resection for SBO. She presented to the ED yesterday, 12/19 with report of pain that began suddenly the evening before. GI is being consulted for intractable nausea and abdominal pain. She says her abd pain all began with bowel surgery for SBO in 2008. She began with pain after eating dinner Sunday, slept a while, was awakened at 4AM with nausea, a distended abdomen and vomited. She has had pain since then. Distention and vomiting resolved with the placement of an NG but nausea and pain persist. Non contrast CT did not show cause of the pain/vomiting. There was evidence of a prior small bowel resection and diverticulosis. On exam, she is hemodynamically stable, but is writhing with pain, c/o diffuse abd pain, worse in both lower quadrants. A review of OP records shows that she has undergone: EGD [address] Felder for N/V: normal. Colonoscopies in Nov 2021 as well as [address] Felder for abdominal pain: both remarkable for diverticulosis, no cause of pain. Small bowel series in 2019: Normal transit time. No evidence of small bowel did dilatation. No evidence of obstruction. Allergies Allergy/AdvReac Type Severity Reaction Status Date / Time ciprofloxacin [From Cipro] AdvReac Unknown Verified 12/19/21 15:07 Home Medications Medication Instructions Recorded Confirmed Type allopurinol 100 mg tablet 100 mg PO QAM 03/01/21 12/19/21 History atorvastatin 80 mg tablet 80 mg PO HS 03/01/21 12/19/21 History duloxetine 30 mg capsule,delayed 30 mg PO HS 03/01/21 12/19/21 History release sprinkle fluticasone propionate 50 1 spray INTRANASAL BID 03/01/21 12/19/21 History mcg/actuation nasal spray,suspension insulin degludec 100 unit/mL (3 10 unit SUBCUT QAM 03/01/21 12/19/21 History mL) subcutaneous pen (Tresiba FlexTouch U-100 insulin) quetiapine 25 mg tablet 25 mg PO HS 03/01/21 12/19/21 History ropinirole 0.25 mg tablet 0.25 mg PO HS 03/01/21 12/19/21 History tizanidine 4 mg capsule (Zanaflex) 4 mg PO BID 03/01/21 12/19/21 History famotidine 20 mg tablet 20 mg PO BID #20 tab 03/13/21 12/19/21 Rx docusate sodium 100 mg capsule 100 mg PO BID #30 cap 05/14/21 12/19/21 Rx (Colace) insulin aspart U-100 100 unit/mL 0 sliding scale dose SUBCUT UD 12/19/21 12/19/21 History (3 mL) subcutaneous pen magnesium oxide 250 mg PO DAILY 12/19/21 12/19/21 History metoprolol succinate 50 mg 50 mg PO BID 12/19/21 12/19/21 History tablet,extended release 24 hr ondansetron 8 mg disintegrating 8 mg TRANSLINGUAL DAILY PRN 12/19/21 12/19/21 History tablet potassium chloride 20 mEq 20 meq PO DAILY 12/19/21 12/19/21 History tablet,extended release(part/cryst) (SoniaCon M) Patient History Medical History (Updated 12/19/21 @ 20:26 by Shruthi Castle DO) Anxiety and depression Bipolar disorder Depression Diverticulitis DMII (diabetes mellitus, type 2) Endometriosis GERD (gastroesophageal reflux disease) Migraine SBO (small bowel obstruction) Surgical History H/O hernia repair H/O tubal ligation History of bowel resection "due to SBO" History of hysterectomy S/P cholecystectomy Family History Father Crohn's disease Parkinsons Social History Smoking Status: Never smoker Second Hand Exposure: No; Do You Dip or Chew Tobacco: No; Hx Alcohol Use: No Hx Substance Use: No Preferred Language: Belarusian Communication Ability: Effective Handling Tech Required: No Beliefs That Will Affect Care: None marital status: Current Living Situation: Spouse current occupational status: disabled Other Information That Helps Us Care for You: No Feels Safe at Home: Yes Safety Concerns: Feels Safe At This Time Assistive Devices: None Review of Systems Review of Systems: ROS: Gen: Denies weakness, fevers, weight loss Eyes: No eye redness, or pain, no recent vision changes Resp: No SOB, no cough Cardio: No palpitations/irregular beats, no chest pain GI: as per HPI, otherwise (-) : Denies pain on urination Skin: No jaundice, itching or new rashes Physical Exam Constitutional: well developed and cooperative Eyes: PERRL, conjunctivae normal, anicteric sclerae ENMT: external ear and nose normal, oropharynx normal Neck: trachea midline, no thyromegaly Respiratory: normal respiratory effort, lungs clear to auscultation Cardiovascular: RRR, no murmur, no edema Gastrointestinal (Abdomen): Inspection/Auscultation: abdomen normal to inspection and normal bowel sounds; abdomen not distended and no abdominal edema Percussion/Palpation: + abdomen tender (very tender diffusely, worse in the RLQ) and abdomen soft; abdomen not rigid NG in place, draining bilious fluid. There is blood in the collection canister but currently draining fluid is billious w/o blood. Skin: no rashes, warm and dry normal turgor Neurologic: PERRL, EOMI, accommodation nl, no face palsy, no dysarthria Psychiatric: A+Ox3, euthymic affect Lymphatic: no cervical or axillary lymphadenopathy Results & Data ([facility]) Vital Signs (Past 12 Hours) Vital Signs Temp Pulse Resp BP Pulse Ox 12/20/21 08:00 36.4 C L 93 H 20 168/108 H 96 12/20/21 04:00 36.7 C 80 22 117/59 L 96 12/20/21 00:00 37 C 88 17 139/82 94 Laboratory Results WBC6.9, Hb 13, Hct 39, Plts 239, Na 131, K 3.7, Cl 95, CO2 25, BUN 95, CO2 25, BUN 9, Cr 0.8, glucose on arrival 458->218 most recently. Diagnostic Findings Non contrast CTAP 12/19/21: 1. No evidence of small bowel obstruction. Postsurgical changes are seen in the small bowel. 2. Diverticulosis without diverticulitis. 3. Mild hyperdensity in bladder contents, correlation with urinalysis is recommended. 4. Additional findings as above.
[2021-12-20] MEDS: HYDROmorphone INJ 0.5 MG/0.5 ML SYR IV PRN ×3 (11:18→22:52)
[2021-12-20] MEDS: ONDANSETRON INJ 2 MG/ML 2 ML VIAL IV PRN ×2 (11:19→20:20)
[2021-12-20] MEDS: MAGNESIUM SULFATE / D5W 1 GM/100 ML BAG IV SCH ×2 (12:48→15:05)
--- NOTE | 2021-12-20 15:27 | Hospitalist Progress Note ---
Date of Service December 20, 2021 Assessment & Plan (1) Intractable vomiting with nausea: (2) Intractable right lower quadrant abdominal pain: Plan: Severe abdominal pain followed by vomiting and some loose stool. 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 Last surgery was hernia repair in 2010. Since that time she has noted some issues with SBO but with a higher frequency during the last two years. CT abd/pelvis did not show SBO Incidentally, she reported uncontrolled blood sugar during this time. A1c is 11.8. Patient does not have a hx of gastroparesis but diabetic gastroparesis is a possibility GI evaluation appreciated Planned for small bowel series tomorrow and possible EGD Continue NGT drainage for now NPO Hypomagnesemia and hypokalemia. Replete and monitor (3) DMII (diabetes mellitus, type 2): Plan: Uncontrolled A1C os 8.4 in Oct 2021 with it being around 9 since Fall 2020. A1c is 11.8 Pharm glycemic consult DM education provided DM educator consult (4) Elevated blood pressure reading: Plan: Situational as patient is in moderate distress with her abdominal pain. BP trend outpatient records has mostly been normal BP is normal now Cont Toprol per home regimen. Monitor BP (5) Tachycardia: Plan: Likely related to dehydration and stress/pain. Resolved Continue metoprolol (6) Anxiety and depression: Plan: Chronic, stable. Cont Cymbalta and Seroquel per outpatient regimen. (7) Bipolar disorder: Plan: Chronic, stable. Cont seroquel per outpatient med regimen. (8) DVT prophylaxis: Plan: SCDs, no chemoprophylaxis with blood in suction canister. Full Code Dispo-to PCU Admission and Anticipated Discharge Date Admission Date: December 19, 2021 Subjective Patient seen and examined. Reports generalized abd pain Reports abd distention/bloating, nausea has significantly improved since NGT placement. None at this time Denied any chest pain, cough, shortness of breath Reported very small BM today Denied fevers, chills Denied dysuria, freq, urgency, hematuria Physical Exam Constitutional: + well hydrated; no acute distress Eyes: PERRL, conjunctivae normal, anicteric sclerae ENMT: external ear and nose normal, oropharynx normal NGT in situ with bilous drainage Respiratory: normal respiratory effort, lungs clear to auscultation Cardiovascular: Rate/Rhythm: regular rate and regular rhythm S1 S2 Gastrointestinal (Abdomen): Generalized abd tenderness, nondistended, soft, + Bowel sounds Musculoskeletal: no cyanosis or clubbing, extremities motor strength 5/5 Neurologic: PERRL, EOMI, accommodation nl, no face palsy, no dysarthria Psychiatric: A+Ox3, euthymic affect Results & Data Results & Data ([facility]) Vital Signs (Past 12 Hours) Vital Signs Temp Pulse Resp BP Pulse Ox 12/20/21 12:00 36.5 C 80 20 119/58 L 97 12/20/21 08:00 36.4 C L 93 H 20 168/108 H 96 12/20/21 04:00 36.7 C 80 22 117/59 L 96 Laboratory Results Abnormal lab results 12/19/21 12/19/21 12/20/21 Range/Units 22:08 22:09 05:14 Potassium 3.4 L (3.5-5.1) mmol/L Glucose 158 H (70-99(Fasting)) mg/dl POC Glucose 324 H* 326 H* (70-99) mg/dl Hemoglobin A1c (4.5-5.6) % Calcium 7.9 L (8.5-10.1) mg/dl Magnesium 1.4 L (1.7-2.4) mg/dl Alkaline Phosphatase 120 H (34-104) U/L Albumin 3.3 L (3.4-5.0) gm/dl 12/20/21 12/20/21 12/20/21 Range/Units 05:14 07:21 11:10 Potassium (3.5-5.1) mmol/L Glucose (70-99(Fasting)) mg/dl POC Glucose 209 H 200 H (70-99) mg/dl Hemoglobin A1c 11.8 H (4.5-5.6) % Calcium (8.5-10.1) mg/dl Magnesium (1.7-2.4) mg/dl Alkaline Phosphatase (34-104) U/L Albumin (3.4-5.0) gm/dl 12/20/21 Range/Units 16:14 Potassium (3.5-5.1) mmol/L Glucose (70-99(Fasting)) mg/dl POC Glucose 231 H (70-99) mg/dl Hemoglobin A1c (4.5-5.6) % Calcium (8.5-10.1) mg/dl Magnesium (1.7-2.4) mg/dl Alkaline Phosphatase (34-104) U/L Albumin (3.4-5.0) gm/dl
--- NOTE | 2021-12-20 16:20 | Electrocardiogram Report ---
Test Reason : Blood Pressure : / mmHG Vent. Rate : 119 BPM Atrial Rate : 119 BPM P-R Int : 136 ms QRS Dur : 066 ms QT Int : 322 ms P-R-T Axes : 047 038 045 degrees QTc Int : 452 ms Sinus tachycardia Abnormal ECG When compared with ECG of 13-MAR-2021 11:18, T wave inversion no longer evident in Anterior leads Confirmed by Evan Nunn ([id number]) on 12/20/2021 4:19:45 PM Referred By: REFERRED SELF Confirmed By:Mina Nunn
[2021-12-20] MEDS: LACTATED RINGER'S 1,000 ML IV SCH (17:01)
[2021-12-20] MEDS ORDERED: PHARMACY GLYCEMIC MGMT CONSULT PRN (17:35)
[2021-12-20] MEDS ORDERED: POTASSIUM CHLORIDE / WTR 10 MEQ/100 ML PLCT IV ONE (18:00)
[2021-12-20] MEDS ORDERED: INSULIN GLARGINE SOLOSTAR 100 UNITS/ML 3 ML PEN SC SCH (21:00)
[2021-12-20] MEDS: QUEtiapine FUMARATE 25 MG TABLET PO SCH (21:28)
[2021-12-20] MEDS: rOPINIRole HCL 0.25 MG TABLET PO SCH (21:28)
[2021-12-20] MEDS: DULoxetine HCL 30 MG CAP PO SCH (21:28)
[2021-12-21] MEDS ORDERED: INSULIN ASPART PER UNIT SC SCH
[2021-12-21] MEDS ORDERED: ACETAMINOPHEN 1,000 MG/100 ML VIAL IV SCH (02:00)
[2021-12-21] MEDS: ACETAMINOPHEN 1,000 MG/100 ML VIAL IV SCH ×3 (02:03→17:16)
[2021-12-21] MEDS: LACTATED RINGER'S 1,000 ML IV SCH ×2 (02:03→09:51)
[2021-12-21] MEDS: ONDANSETRON INJ 2 MG/ML 2 ML VIAL IV PRN ×3 (02:10→21:43)
[2021-12-21] MEDS ORDERED: HYDROmorphone INJ 0.5 MG/0.5 ML SYR IV STA (02:48)
[2021-12-21] MEDS: INSULIN ASPART PER UNIT SC SCH ×6 (04:30→20:10)
[2021-12-21 05:30] LABS: Hematocrit (blood only) 36.8 % (37-47); Hemoglobin 12.3 g/dL (12.0-16.0); Mean Corpuscular Hemoglobin 29.2 pg (25-34); Mean Corpuscular Hgb Conc 33.4 g/dL (32-36); Mean Corpuscular Volume 87.4 fL (80-100); Mean Platelet Volume 9.9 fL (7.4-10.4); Platelet Count 200 K/uL (130-400); RDW Coefficient of Variation 13.2 % (11.5-14.5); Red Blood Count 4.21 M/uL (4.2-5.4); White Blood Count 9.69 K/uL (4.8-10.8)
[2021-12-21 06:00] LABS: Calcium 8.1 mg/dl (8.5-10.1); Creatinine Clr Calc Pharmacy 106.8 ml/min; Est GFR (African American) 124.4 ml/min; Est GFR (Non-African American) 107.3 ml/min; Magnesium 1.5 mg/dl (1.7-2.4)
[2021-12-21] MEDS: HYDROmorphone INJ 0.5 MG/0.5 ML SYR IV PRN ×4 (06:07→23:07)
[2021-12-21] MEDS: PANTOprazole 40 MG in SYRINGE 0 ML IV SCH ×2 (08:40→20:30)
[2021-12-21] MEDS ORDERED: HYDROmorphone INJ 0.5 MG/0.5 ML SYR IV PRN (09:02)
[2021-12-21] MEDS: POTASSIUM CHLORIDE 20 MEQ in LACTATED RINGER'S 1,000 ML IV SCH ×2 (09:13→16:40)
[2021-12-21] MEDS: MAGNESIUM SULFATE / D5W 1 GM/100 ML BAG IV SCH ×4 (09:13→15:59)
[2021-12-21] MEDS: METOPROLOL SUCC 50MG EXT REL TAB PO SCH ×2 (11:12→20:15)
[2021-12-21] MEDS: POTASSIUM CHLORIDE CRTAB 20 MEQ TABCR PO SCH (11:12)
[2021-12-21] MEDS: FAMOTIDINE 20 MG in SYRINGE 3 ML IV SCH ×2 (11:14→21:44)
--- NOTE | 2021-12-21 11:15 | Gastroenterology Progress Note ---
Date of Service December 21, 2021 Assessment & Plan (1) Intractable vomiting with nausea: (2) Intractable right lower quadrant abdominal pain: Plan: Will watch for results of small bowel series. Minimal upper abd symptoms, so no plans for EGD at this time. Nausea and pain most likely related to adhesive dx. Admission and Anticipated Discharge Date Admission Date: December 19, 2021 Supervising Physician Co-Signing Physician Notes I performed a history and physical examination of the patient today, including specifically on physical exam - soft abdomen. I have discussed the patient's management with the advanced practitioner. Please refer to the nurse practitioner's note for the documented findings and plan of care. I reviewed her SBFT and it looks normal and contrast reached her colon. No need for NG tube and can start PO liquids. PRN anti emetics. Avoid Opioids. Trial of Bentyl. Follow up as OP. Recall GI if needed. Subjective Was feeling well, with NG in place until drank prep for small bowel series, then increased nausea and pain, both lower quadrants, Rt>Lt. Passed a BM last evening. No vomiting yesterday or today. Review of Systems Review of Systems: ROS: Gen: Denies weakness, fevers, weight loss Eyes: No eye redness, or pain, no recent vision changes Resp: No SOB, no cough Cardio: No palpitations/irregular beats, no chest pain GI: as per HPI, otherwise (-) : Denies pain on urination Skin: No jaundice, itching or new rashes Physical Exam Constitutional: well developed and cooperative Eyes: PERRL, conjunctivae normal, anicteric sclerae ENMT: external ear and nose normal, oropharynx normal Neck: trachea midline, no thyromegaly Respiratory: normal respiratory effort, lungs clear to auscultation Cardiovascular: RRR, no murmur, no edema Gastrointestinal (Abdomen): Inspection/Auscultation: abdomen normal to inspection and normal bowel sounds; abdomen not distended and no abdominal edema Percussion/Palpation: + abdomen tender (very tender diffusely, worse in the RLQ) and abdomen soft; abdomen not rigid NG in place but clamped. Skin: no rashes, warm and dry normal turgor Neurologic: PERRL, EOMI, accommodation nl, no face palsy, no dysarthria Psychiatric: A+Ox3, euthymic affect Lymphatic: no cervical or axillary lymphadenopathy Results & Data ([facility]) Vital Signs (Past 12 Hours) Vital Signs Temp Pulse Pulse Resp BP BP Pulse Ox 12/21/21 08:36 88 20 168/113 H 96 12/21/21 07:00 72 12/21/21 02:35 36.9 C 81 20 142/97 H 98 12/20/21 23:30 72 Laboratory Results WBC 9.6, Hb 12, Hct 36, plts 200, Na 136, K 3.0, Cl 102, CO2 26, BUN 4, Cr 0.5, glucose 153. Diagnostic Findings Small bowel series is pending.
--- NOTE | 2021-12-21 11:24 | Pharmacy Report ---
Pharmacy Glycemic Short Note 2 - Date of Service December 21, 2021 - Glycemic Short BSG Results (Last 24 hours): 12/20/21 12/20/21 12/20/21 11:10 16:14 20:29 Glucose POC Glucose 200 H 231 H 172 H 12/21/21 12/21/21 12/21/21 00:06 04:21 05:13 Glucose 153 H POC Glucose 111 H 157 H 12/21/21 07:21 Glucose POC Glucose 124 H OUTPATIENT ANTIDIABETIC REGIMEN: * Tresiba 10 units SQ qAM * Novolog SS TIDWM HbA1C: 11.8 ASSESSMENT: * Pt is a 51 YOF with a history of uncontrolled DM2 admitted with intractable RLQ abdominal pain, nausea and vomiting. Pharmacy consulted to assist with glycemic management. * NPO since admission and BSGs down-trending into this AM. Given 15 units of Lantus last evening as BSGs were in 200s throughout the day yesterday on home regimen. Other stressors stable. * Lantus HS per scale pending HS BSG given remains NPO * Novolog q4h for correctional insulin (weight/stress 3)- will tighten based upon BSG trends. PLAN FOR INPATIENT GLYCEMIC CONTROL: * Hold outpatient oral diabetes medications * Basal insulin * Lantus HS per scale * Bolus insulin * NovoLog per scale q4h while NPO * Goal Range: Low 110 mg/dL - High 140 mg/dL * Correction Factor: 20 mg/dL/unit * Nutritional / Prandial insulin per carb ratio of 1 unit per 11 grams CHO consumed
--- NOTE | 2021-12-21 12:22 | Fluoroscopy Report ---
[place] small bowel follow through CLINICAL HISTORY: abdominal pain; multiple prior surg; prior SBO TECHNIQUE: Single contrast upper GI Study was performed using standard technique. Blocking Machine Operator Second images were obtained. Multiple spot images were obtained. After the upper GI exam was completed, the patient junaid nk an additional cup of barium followed by serial abdominal xray images. FINDINGS: Barium was then noted to pass into the gastric fundus, body, antrum, and pylorus under fluoroscopic v isualization. No mass, ulcer, or thickened gastric folds were noted. Barium passed into the proximal small bowel freely. No duodenal mass or ulcer was identified. Small bowel loops are normal in caliber and position. The terminal ileum was visualized and appeared nicolette sly unremarkable. IMPRESSION: Normal upper GI study with small bowel follow through. In particular, no dilated loops of small bowel are seen to suggest small bowel obstruction. ACT 112: Negative or not required by law. Electronically signed by: Abhishek Harkins M.D. 12/21/2021 12:21 PM
--- NOTE | 2021-12-21 13:37 | Electrocardiogram Report ---
Test Reason : Blood Pressure : / mmHG Vent. Rate : 084 BPM Atrial Rate : 084 BPM P-R Int : 146 ms QRS Dur : 068 ms QT Int : 380 ms P-R-T Axes : 040 051 057 degrees QTc Int : 449 ms Normal sinus rhythm Normal ECG When compared with ECG of 19-DEC-2021 18:00, No significant change was found Confirmed by Evan Nunn ([id number]) on 12/21/2021 1:37:12 PM Referred By: REFERRED SELF Confirmed By:Mina Nunn
--- NOTE | 2021-12-21 16:00 | Ultrasound Report ---
DOPPLER ULTRASOUND OF THE MESENTERIC VASCULATURE CLINICAL HISTORY: Postprandial abdominal pain. COMPARISON STUDY: Abdominal CT scans dated 12/19/2021 and 06/15/2021. TECHNIQUE: Real-time grayscale and color Doppler sonography of the mesenteric vasculature is performe d. FINDINGS: The abdominal aorta is patent with velocities measured up to 80 cm/s. The celiac trunk is p atent with velocities measuring up to 105 cm/s. The superior mesenteric artery is patent with velocit ies measured up to 138 cm/s. Normal arterial waveforms are maintained throughout. Survey images of th e liver show evidence of hepatic steatosis. IMPRESSION: Normal Doppler assessment of the mesenteric vasculature. Dictated: 12/21/2021 3:29 PM Transcribed: 12/21/2021 3:48 PM Leslie [id number] [facility] Electronically signed by: Tiago Hadley M.D. 12/21/2021 3:59 PM
--- NOTE | 2021-12-21 16:49 | Hospitalist Progress Note ---
Date of Service December 21, 2021 Assessment & Plan (1) Intractable vomiting with nausea: (2) Intractable right lower quadrant abdominal pain: Plan: Unclear etiology CT A/P negative for obstruction Small bowel series today also negative for obstruction, although patient's pain did worsen after barium intake (large volume) Will continue NGT to continuous suction tonight and try clamping tomorrow Appreciate GI input, trial of bentyl started today (3) DMII (diabetes mellitus, type 2): Plan: Uncontrolled A1C os 8.4 in Oct 2021 with it being around 9 since Fall 2020. A1c is 11.8 Pharm glycemic consult DM education provided DM educator consult (4) Elevated blood pressure reading: Plan: Situational as patient is in moderate distress with her abdominal pain. BP trend outpatient records has mostly been normal Cont Toprol per home regimen. Monitor BP (5) Tachycardia: Plan: Likely related to dehydration and stress/pain. Resolved Continue metoprolol (6) Anxiety and depression: Plan: Chronic, stable. Cont Cymbalta and Seroquel per outpatient regimen. (7) Bipolar disorder: Plan: Chronic, stable. Cont seroquel per outpatient med regimen. (8) DVT prophylaxis: Plan: start SQ heparin Plan: Hypokalemia Hypomagnesemia -repleted today Admission and Anticipated Discharge Date Admission Date: December 19, 2021 Subjective "I am miserable" Abdominal pain worsened after drinking barium Pain relieved with ongoing NGT suction, output 300 cc/8 hour shift Physical Exam Physical Exam: laying in bed on left decubitus No acute distress currently Respiratory: breathing comfortably on room air, no wheezing/rhonchi/rales Cardiovascular: regular rate and rhythm, no murmurs/rubs/gallops Gastrointestinal (Abdomen): soft, non distended Musculoskeletal: no edema, no cyanosis or clubbing Neurologic: awake, alert, spontaneously moving extremities Results & Data Results & Data ([facility]) Vital Signs (Past 12 Hours) Vital Signs Temp Pulse Pulse Resp BP BP Pulse Ox 12/21/21 15:30 36.4 C L 90 21 167/86 H 98 12/21/21 11:00 36.9 C 87 18 159/91 H 95 12/21/21 08:36 88 20 168/113 H 96 12/21/21 07:00 72 Laboratory Results Short CBC 12/21/21 Range/Units 05:13 WBC 9.69 (4.8-10.8) K/uL Hgb 12.3 (12.0-16.0) g/dL Hct 36.8 L (37-47) % Plt Count 200 (130-400) K/uL [facility] 12/21/21 05:13 Sodium 136 Potassium 3.0 L Chloride 102 Carbon Dioxide 26 BUN 4 L Creatinine 0.57 L Glucose 153 H Calcium 8.1 L Medications Administered Current Inpatient Medications Dextrose (Dextrose 50% 50 Ml Syringe) 25 - 50 ml IV UD PRN; Protocol PRN Reason: Hypoglycemia Protocol Stop: 01/18/22 21:51 Dicyclomine HCl (Dicyclomine Hcl 10 Mg Cap) 10 mg PO BID [facility] Stop: 01/20/22 20:59 Duloxetine HCl (Duloxetine Hcl 30 Mg Cap) 30 mg PO HS [facility]I Stop: 01/18/22 21:51 Last Admin: 12/20/21 21:28 Dose: 30 mg Documented by: Glucagon (Glucagon For Inj 1 Mg Vial) 1 mg SQ UD PRN; Protocol PRN Reason: Hypoglycemia Protocol Stop: 01/18/22 21:51 Glucose (Glucose 10 Tabs/Tube) 4 - 8 tabs PO UD PRN; Protocol PRN Reason: Hypoglycemia Protocol Stop: 01/18/22 21:51 Glucose (Glucose 40% Gel 15 Gm Tube) 15 - 30 gm PO UD PRN; Protocol PRN Reason: Hypoglycemia Protocol Stop: 01/18/22 21:51 Heparin Sodium (Porcine) (Heparin 100 Unit/Ml 5ml Flush) 5 ml FLUSH PRN PRN PRN Reason: Flush Stop: 01/19/22 04:01 Last Admin: 12/20/21 11:27 Dose: 5 ml Documented by: Hydromorphone HCl (Hydromorphone Inj 0.5 Mg/0.5 Ml Syr) 0.5 mg IV Q3HWA PRN PRN Reason: Pain Stop: 12/25/21 11:36 Last Admin: 12/21/21 12:17 Dose: 0.5 mg Documented by: Pantoprazole Sodium 40 mg/ (Syringe) 10 mls @ 5 mls/min IV BID MARI Stop: 01/18/22 21:51 Last Admin: 12/21/21 08:40 Dose: 5 mls/min Documented by: Famotidine 20 mg/ Syringe 5 mls @ 2.5 mls/min IV Q12H [facility] Stop: 01/18/22 21:51 Last Admin: 12/21/21 11:14 Dose: 2.5 mls/min Documented by: Acetaminophen (Ofirmev) 1,000 mg in 100 mls @ 400 mls/hr IV Q8H [facility] Stop: 12/23/21 02:09 Last Infusion: 12/21/21 09:40 Dose: Infused Documented by: Magnesium Sulfate/Dextrose (Magnesium Sulfate / D5w) 1 gm in 100 mls @ 50 mls/hr IV Q2H [facility] Stop: 12/21/21 16:49 Last Admin: 12/21/21 15:59 Dose: 50 mls/hr Documented by: Potassium Chloride 20 meq/ (Lactated Ringer's) 1,010 mls @ 125 mls/hr IV .Q8H5M [facility] Stop: 01/20/22 08:59 Last Admin: 12/21/21 16:40 Dose: 125 mls/hr Documented by: Insulin Aspart (Insulin Aspart Per Unit) 0 units SC Q4 [facility] Stop: 01/19/22 19:59 Last Admin: 12/21/21 16:40 Dose: 3 units Documented by: Insulin Glargine (Insulin Glargine Solostar 100 Units/Ml 3 Ml Pen) 0 units SC HS [facility]; Protocol Stop: 01/19/22 20:59 Metoprolol Succinate (Metoprolol Succ 50mg Ext Rel Tab) 50 mg PO BID [facility] Stop: 01/18/22 21:51 Last Admin: 12/21/21 11:12 Dose: 50 mg Documented by: Miscellaneous (Carbohydrates For Hypoglycemia ) 15 - 30 gm PO UD PRN PRN Reason: Hypoglycemia Protocol Stop: 01/18/22 21:51 Miscellaneous Information (Pharmacy Glycemic Mgmt Consult) 1 ea N/A UD PRN PRN Reason: Consult Stop: 01/19/22 17:34 Ondansetron HCl (Ondansetron Inj 2 Mg/Ml 2 Ml Vial) 4 mg IV Q6H PRN PRN Reason: Nausea Stop: 01/18/22 21:51 Last Admin: 12/21/21 08:40 Dose: 4 mg Documented by: Polyethylene Glycol (Polyethylene (Miralax) 17 Gm Pack) 17 gm PO DAILY PRN PRN Reason: Constipation Stop: 01/18/22 21:51 Potassium Chloride (Potassium Chloride Crtab 20 Meq Tabcr) 20 meq PO DAILY [facility] Stop: 01/19/22 08:59 Last Admin: 12/21/21 11:12 Dose: 20 meq Documented by: Quetiapine Fumarate (Quetiapine Fumarate 25 Mg Tablet) 25 mg PO [facility] Stop: 01/18/22 21:51 Last Admin: 12/20/21 21:28 Dose: 25 mg Documented by: Ropinirole HCl (Ropinirole Hcl 0.25 Mg Tablet) 0.25 mg PO [facility] Stop: 01/18/22 21:51 Last Admin: 12/20/21 21:28 Dose: 0.25 mg Documented by: Tizanidine HCl (Tizanidine Hcl 4 Mg Tablet) 4 mg PO BID PRN PRN Reason: muscle spasms Stop: 01/18/22 21:51
[2021-12-21] MEDS: DICYCLOMINE HCL 10 MG CAP PO SCH (20:11)
[2021-12-21] MEDS: HEPARIN SOD 5,000 UNIT/0.5 ML VIAL SQ SCH (20:11)
[2021-12-21] MEDS: QUEtiapine FUMARATE 25 MG TABLET PO SCH (20:14)
[2021-12-21] MEDS: DULoxetine HCL 30 MG CAP PO SCH (20:14)
[2021-12-21] MEDS: rOPINIRole HCL 0.25 MG TABLET PO SCH (20:14)
[2021-12-21] MEDS ORDERED: INSULIN GLARGINE SOLOSTAR 100 UNITS/ML 3 ML PEN SC SCH (21:00)
[2021-12-22] MEDS: INSULIN ASPART PER UNIT SC SCH ×6 (00:13→22:07)
[2021-12-22] MEDS: POTASSIUM CHLORIDE 20 MEQ in LACTATED RINGER'S 1,000 ML IV SCH ×3 (00:53→18:10)
[2021-12-22] MEDS: ACETAMINOPHEN 1,000 MG/100 ML VIAL IV SCH ×3 (02:43→17:42)
[2021-12-22] MEDS: HYDROmorphone INJ 0.5 MG/0.5 ML SYR IV PRN ×7 (03:42→23:02)
[2021-12-22 06:20] LABS: Hematocrit (blood only) 35.2 % (37-47); Mean Corpuscular Hemoglobin 29.3 pg (25-34); Mean Corpuscular Hgb Conc 34.1 g/dL (32-36); Mean Corpuscular Volume 85.9 fL (80-100); Platelet Count 203 K/uL (130-400); RDW Coefficient of Variation 13.3 % (11.5-14.5); RDW Standard Deviation 42.1 fL (36.4-46.3); White Blood Count 7.72 K/uL (4.8-10.8)
[2021-12-22 07:02] LABS: Albumin Level 3.3 gm/dl (3.4-5.0); BUN Creatinine Ratio 5.7 (10-20); Bilirubin,Total 0.5 mg/dl (0.2-1.0); Calcium 8.4 mg/dl (8.5-10.1); Creatinine Clr Calc Pharmacy 115.2 ml/min; Est GFR (African American) 127.4 ml/min; Est GFR (Non-African American) 109.9 ml/min; Globulin 3.2 gm/dl (2.5-4.0); Magnesium 1.7 mg/dl (1.7-2.4); Phosphorus 3.1 mg/dl (2.5-4.9); Potassium 3.2 mmol/L (3.5-5.1); Total Protein 6.5 gm/dl (6.0-8.3)
[2021-12-22] MEDS: POTASSIUM CHLORIDE CRTAB 20 MEQ TABCR PO SCH (08:54)
[2021-12-22] MEDS: FAMOTIDINE 20 MG in SYRINGE 3 ML IV SCH ×2 (08:54→21:39)
[2021-12-22] MEDS: PANTOprazole 40 MG in SYRINGE 0 ML IV SCH ×2 (08:54→20:39)
[2021-12-22] MEDS: METOPROLOL SUCC 50MG EXT REL TAB PO SCH ×2 (08:55→20:23)
[2021-12-22] MEDS: HEPARIN SOD 5,000 UNIT/0.5 ML VIAL SQ SCH ×2 (08:55→20:24)
[2021-12-22] MEDS: DICYCLOMINE HCL 10 MG CAP PO SCH ×2 (08:55→20:24)
[2021-12-22] MEDS: POTASSIUM CHLORIDE 20 MEQ/15 ML UDC PO SCH ×2 (09:47→20:24)
[2021-12-22] MEDS ORDERED: Nursing to Pharmacy Communication SCH (11:30)
[2021-12-22] MEDS ORDERED: INSULIN GLARGINE SOLOSTAR 100 UNITS/ML 3 ML PEN SC ONE (12:00)
--- NOTE | 2021-12-22 12:20 | Pharmacy Report ---
Pharmacy Glycemic Short Note 2 - Date of Service December 22, 2021 - Glycemic Short BSG Results (Last 24 hours): 12/21/21 12/21/21 12/22/21 16:05 19:53 00:09 Glucose POC Glucose 195 H 156 H 121 H 12/22/21 12/22/21 12/22/21 03:33 05:42 07:54 Glucose 107 H POC Glucose 122 H 118 H 12/22/21 11:32 Glucose POC Glucose 184 H OUTPATIENT ANTIDIABETIC REGIMEN: * Tresiba 10 units SQ qAM * Novolog SS TIDWM HbA1C: 11.8 ASSESSMENT: 12/22/21 * BSGs reasonably well-controlled yesterday while NPO * Received 7 units of Lantus and 7 units of correctional Novolog * NG tube clamped today, clear liquid diet initiated * Will give increased dose of Lantus at lunchtime and plan to go back to AM dosing tomorrow 12/21/21 * Pt is a 51 YOF with a history of uncontrolled DM2 admitted with intractable RLQ abdominal pain, nausea and vomiting. Pharmacy consulted to assist with glycemic management. * NPO since admission and BSGs down-trending into this AM. Given 15 units of Lantus last evening as BSGs were in 200s throughout the day yesterday on home regimen. Other stressors stable. * Lantus HS per scale pending HS BSG given remains NPO * Novolog q4h for correctional insulin (weight/stress 3)- will tighten based upon BSG trends. PLAN FOR INPATIENT GLYCEMIC CONTROL: * Hold outpatient oral diabetes medications * Basal insulin * Lantus 10 units SC x 1 today * Reassess in AM * Bolus insulin * NovoLog per scale ACHS * Goal Range: Low 110 mg/dL - High 140 mg/dL * Correction Factor: 30 mg/dL/unit * Nutritional / Prandial insulin per carb ratio of 1 unit per 10 grams CHO consumed
--- NOTE | 2021-12-22 13:04 | Hospitalist Progress Note ---
Date of Service December 22, 2021 Assessment & Plan (1) Intractable vomiting with nausea: (2) Intractable right lower quadrant abdominal pain: Plan: Unclear etiology CT A/P negative for obstruction Small bowel series 12/21 also negative for obstruction, although patient's pain did worsen after barium intake (large volume) Will clamp NGT and start on clears Appreciate GI input, trial of bentyl started 12/21 (3) DMII (diabetes mellitus, type 2): Plan: Uncontrolled A1C os 8.4 in Oct 2021 with it being around 9 since Fall 2020. A1c is 11.8 Pharm glycemic consult DM education provided DM educator consult (4) Elevated blood pressure reading: Plan: Situational as patient is in moderate distress with her abdominal pain. BP trend outpatient records has mostly been normal Cont Toprol per home regimen. Monitor BP (5) Tachycardia: Plan: Likely related to dehydration and stress/pain. Resolved Continue metoprolol (6) Anxiety and depression: Plan: Chronic, stable. Cont Cymbalta and Seroquel per outpatient regimen. (7) Bipolar disorder: Plan: Chronic, stable. Cont seroquel per outpatient med regimen. (8) DVT prophylaxis: Plan: start SQ heparin Plan: Hypokalemia Hypomagnesemia -repleted again today Admission and Anticipated Discharge Date Admission Date: December 19, 2021 Subjective Abdominal pain and nausea improved "I'm starving! Can I have lunch?" Minimal output from NGT overnight Physical Exam Physical Exam: no acute distress, pleasant and comfortable Respiratory: breathing comfortably on room air, no wheezing/rhonchi/rales Cardiovascular: regular rate and rhythm, no murmurs/rubs/gallops Gastrointestinal (Abdomen): soft,non tender, +hyperactive Musculoskeletal: No edema Neurologic: awake, alert, spontaneously moving extremities Results & Data Results & Data ([facility]) Vital Signs (Past 12 Hours) Vital Signs Temp Pulse Pulse Pulse Resp BP BP 12/22/21 11:06 36.6 C 71 18 112/64 12/22/21 07:39 36.7 C 78 18 160/82 H 12/22/21 07:08 72 12/22/21 03:52 36.6 C 78 20 152/92 H Pulse Ox 12/22/21 11:06 96 12/22/21 07:39 96 12/22/21 07:08 12/22/21 03:52 97 Laboratory Results Short CBC 12/22/21 Range/Units 05:42 WBC 7.72 (4.8-10.8) K/uL Hgb 12.0 (12.0-16.0) g/dL Hct 35.2 L (37-47) % Plt Count 203 (130-400) K/uL BMP 12/22/21 05:42 Sodium 137 Potassium 3.2 L Chloride 102 Carbon Dioxide 26 BUN 3 L Creatinine 0.53 L Glucose 107 H Calcium 8.4 L Liver Function 12/22/21 Range/Units 05:42 Total Bilirubin 0.5 (0.2-1.0) mg/dl AST 13 (13-39) U/L ALT 9 (7-52) U/L Alkaline Phosphatase 122 H (34-104) U/L Albumin 3.3 L (3.4-5.0) gm/dl Medications Administered Current Inpatient Medications Dextrose (Dextrose 50% 50 Ml Syringe) 25 - 50 ml IV UD PRN; Protocol PRN Reason: Hypoglycemia Protocol Stop: 01/18/22 21:51 Dicyclomine HCl (Dicyclomine Hcl 10 Mg Cap) 10 mg PO BID [facility] Stop: 01/20/22 20:59 Last Admin: 12/22/21 08:55 Dose: 10 mg Documented by: Duloxetine HCl (Duloxetine Hcl 30 Mg Cap) 30 mg PO HS [facility] Stop: 01/18/22 21:51 Last Admin: 12/21/21 20:14 Dose: 30 mg Documented by: Glucagon (Glucagon For Inj 1 Mg Vial) 1 mg SQ UD PRN; Protocol PRN Reason: Hypoglycemia Protocol Stop: 01/18/22 21:51 Glucose (Glucose 10 Tabs/Tube) 4 - 8 tabs PO UD PRN; Protocol PRN Reason: Hypoglycemia Protocol Stop: 01/18/22 21:51 Glucose (Glucose 40% Gel 15 Gm Tube) 15 - 30 gm PO UD PRN; Protocol PRN Reason: Hypoglycemia Protocol Stop: 01/18/22 21:51 Heparin Sodium (Porcine) (Heparin 100 Unit/Ml 5ml Flush) 5 ml FLUSH PRN PRN PRN Reason: Flush Stop: 01/19/22 04:01 Last Admin: 12/20/21 11:27 Dose: 5 ml Documented by: Heparin Sodium (Porcine) (Heparin Sod 5,000 Unit/0.5 Ml Vial) 5,000 units SQ Q12 [facility] Stop: 01/20/22 20:59 Last Admin: 12/22/21 08:55 Dose: 5,000 units Documented by: Hydromorphone HCl (Hydromorphone Inj 0.5 Mg/0.5 Ml Syr) 0.5 mg IV Q3HWA PRN PRN Reason: Pain Stop: 12/25/21 11:36 Last Admin: 12/22/21 10:06 Dose: 0.5 mg Documented by: Pantoprazole Sodium 40 mg/ (Syringe) 10 mls @ 5 mls/min IV BID [facility] Stop: 01/18/22 21:51 Last Admin: 12/22/21 08:54 Dose: 5 mls/min Documented by: Famotidine 20 mg/ Syringe 5 mls @ 2.5 mls/min IV Q12H [facility] Stop: 01/18/22 21:51 Last Admin: 12/22/21 08:54 Dose: 2.5 mls/min Documented by: Acetaminophen (Ofirmev) 1,000 mg in 100 mls @ 400 mls/hr IV Q8H [facility] Stop: 12/23/21 02:09 Last Infusion: 12/22/21 09:40 Dose: Infused Documented by: Potassium Chloride 20 meq/ (Lactated Ringer's) 1,010 mls @ 125 mls/hr IV .Q8H5M [facility] Stop: 01/20/22 08:59 Last Admin: 12/22/21 09:48 Dose: 125 mls/hr Documented by: Insulin Aspart (Insulin Aspart Per Unit) 0 units SC ACHS [facility] Stop: 01/19/22 19:59 Last Admin: 12/22/21 12:28 Dose: 6 units Documented by: Metoprolol Succinate (Metoprolol Succ 50mg Ext Rel Tab) 50 mg PO BID [facility] Stop: 01/18/22 21:51 Last Admin: 12/22/21 08:55 Dose: 50 mg Documented by: Miscellaneous (Carbohydrates For Hypoglycemia ) 15 - 30 gm PO UD PRN PRN Reason: Hypoglycemia Protocol Stop: 01/18/22 21:51 Miscellaneous Information (Pharmacy Glycemic Mgmt Consult) 1 ea N/A UD PRN PRN Reason: Consult Stop: 01/19/22 17:34 Ondansetron HCl (Ondansetron Inj 2 Mg/Ml 2 Ml Vial) 4 mg IV Q6H PRN PRN Reason: Nausea Stop: 01/18/22 21:51 Last Admin: 12/21/21 21:43 Dose: 4 mg Documented by: Polyethylene Glycol (Polyethylene (Miralax) 17 Gm Pack) 17 gm PO DAILY PRN PRN Reason: Constipation Stop: 01/18/22 21:51 Potassium Chloride (Potassium Chloride 20 Meq/15 Ml Udc) 20 meq PO BID [facility] Stop: 01/21/22 08:59 Last Admin: 12/22/21 09:47 Dose: 20 meq Documented by: Quetiapine Fumarate (Quetiapine Fumarate 25 Mg Tablet) 25 mg PO [facility] Stop: 01/18/22 21:51 Last Admin: 12/21/21 20:14 Dose: 25 mg Documented by: Ropinirole HCl (Ropinirole Hcl 0.25 Mg Tablet) 0.25 mg PO HS [facility] Stop: 01/18/22 21:51 Last Admin: 12/21/21 20:14 Dose: 0.25 mg Documented by: Tizanidine HCl (Tizanidine Hcl 4 Mg Tablet) 4 mg PO BID PRN PRN Reason: muscle spasms Stop: 01/18/22 21:51
[2021-12-22] MEDS: ONDANSETRON INJ 2 MG/ML 2 ML VIAL IV PRN (14:55)
[2021-12-22] MEDS: DULoxetine HCL 30 MG CAP PO SCH (20:24)
[2021-12-22] MEDS: rOPINIRole HCL 0.25 MG TABLET PO SCH (20:24)
[2021-12-22] MEDS: QUEtiapine FUMARATE 25 MG TABLET PO SCH (20:39)
[2021-12-23] MEDS: POTASSIUM CHLORIDE 20 MEQ in LACTATED RINGER'S 1,000 ML IV SCH ×2 (01:52→08:57)
[2021-12-23] MEDS ORDERED: INSULIN ASPART PER UNIT SC SCH (02:00)
[2021-12-23] MEDS: HYDROmorphone INJ 0.5 MG/0.5 ML SYR IV PRN ×7 (02:06→22:06)
[2021-12-23] MEDS: PANTOprazole 40 MG in SYRINGE 0 ML IV SCH (07:28)
[2021-12-23] MEDS: FAMOTIDINE 20 MG in SYRINGE 3 ML IV SCH ×2 (07:28→21:20)
[2021-12-23] MEDS: tiZANidine HCL 4 MG TABLET PO PRN ×2 (07:28→21:10)
[2021-12-23] MEDS: HEPARIN SOD 5,000 UNIT/0.5 ML VIAL SQ SCH ×2 (07:29→21:11)
[2021-12-23] MEDS: DICYCLOMINE HCL 10 MG CAP PO SCH ×2 (07:29→21:10)
[2021-12-23] MEDS: POTASSIUM CHLORIDE 20 MEQ/15 ML UDC PO SCH (07:29)
[2021-12-23] MEDS: METOPROLOL SUCC 50MG EXT REL TAB PO SCH ×2 (07:30→21:10)
[2021-12-23 07:55] LABS: Hematocrit (blood only) 38.6 % (37-47); Hemoglobin 12.8 g/dL (12.0-16.0); Mean Corpuscular Hemoglobin 29.3 pg (25-34); Mean Corpuscular Hgb Conc 33.2 g/dL (32-36); Mean Corpuscular Volume 88.3 fL (80-100); Mean Platelet Volume 9.8 fL (7.4-10.4); Platelet Count 258 K/uL (130-400); RDW Coefficient of Variation 13.2 % (11.5-14.5); RDW Standard Deviation 42.7 fL (36.4-46.3); Red Blood Count 4.37 M/uL (4.2-5.4); White Blood Count 9.19 K/uL (4.8-10.8)
[2021-12-23] MEDS: INSULIN ASPART PER UNIT SC SCH ×4 (08:23→22:52)
[2021-12-23] MEDS: INSULIN GLARGINE SOLOSTAR 100 UNITS/ML 3 ML PEN SC SCH (08:24)
[2021-12-23 08:51] LABS: Albumin Globulin Ratio 1.1 (0.9-2); Albumin Level 3.6 gm/dl (3.4-5.0); BUN Creatinine Ratio 6.7 (10-20); Bilirubin,Total 0.4 mg/dl (0.2-1.0); Calcium 9.2 mg/dl (8.5-10.1); Creatinine Clr Calc Pharmacy 98.9 ml/min; Est GFR (African American) 122.3 ml/min; Est GFR (Non-African American) 105.5 ml/min; Globulin 3.4 gm/dl (2.5-4.0); Magnesium 1.3 mg/dl (1.7-2.4); Potassium 4.3 mmol/L (3.5-5.1)
--- NOTE | 2021-12-23 09:47 | Hospitalist Progress Note ---
Date of Service December 23, 2021 Assessment & Plan (1) Intractable vomiting with nausea: (2) Intractable right lower quadrant abdominal pain: Plan: Unclear etiology, likely from adhesions CT A/P negative for obstruction Small bowel series 12/21 also negative for obstruction, although patient's pain did worsen after barium intake (large volume) NGT tube removed 12/23 Patient tolerated a full liquid diet. Will advance to Carb controlled diet Appreciate GI input, trial of bentyl started 12/21 (3) DMII (diabetes mellitus, type 2): Plan: Uncontrolled A1C os 8.4 in Oct 2021 with it being around 9 since Fall 2020. A1c is 11.8 Pharm glycemic consult DM education provided DM educator consult (4) Elevated blood pressure reading: Plan: Situational as patient is in moderate distress with her abdominal pain. BP trend outpatient records has mostly been normal Cont Toprol per home regimen. Monitor BP (5) Tachycardia: Plan: Likely related to dehydration and stress/pain. Resolved Continue metoprolol (6) Anxiety and depression: Plan: Chronic, stable. Cont Cymbalta and Seroquel per outpatient regimen. (7) Bipolar disorder: Plan: Chronic, stable. Cont seroquel per outpatient med regimen. (8) DVT prophylaxis: Plan: SQ heparin Plan: Hypokalemia Hypomagnesemia -Hypokalemia resolved--> d/c IV potassium and PO potassium -2gm IV Mag ordered Possibly discharge this afternoon vs tomorrow AM if she tolerates lunch Admission and Anticipated Discharge Date Admission Date: December 19, 2021 Subjective NG tube removed yesterday Tolerating full liquid diet Ambulating in room with no difficulty and "I"m moving my bowels" Did report some abdominal cramping again in RLQ Physical Exam Physical Exam: Pleasant, comfortable, no acute distress Respiratory: breathing comfortably on room air, no wheezing/rhonchi/rales Cardiovascular: regular rate and rhythm, no murmurs/rubs/gallops Gastrointestinal (Abdomen): soft, non distended, hyperactive Musculoskeletal: no edema Results & Data Results & Data ([facility]) Vital Signs (Past 12 Hours) Vital Signs Temp Pulse Pulse Resp BP BP Pulse Ox 12/23/21 07:45 74 12/23/21 07:43 37.1 C 83 16 168/98 H 96 12/23/21 03:13 36.8 C 83 18 143/87 H 95 03/24/22 23:04 37.1 C 73 75 20 144/71 H 97 Laboratory Results Short CBC 12/23/21 Range/Units 07:37 WBC 9.19 (4.8-10.8) K/uL Hgb 12.8 (12.0-16.0) g/dL Hct 38.6 (37-47) % Plt Count 258 (130-400) K/uL BMP 12/23/21 07:37 Sodium 137 Potassium 4.3 D Chloride 102 Carbon Dioxide 27 BUN 4 L Creatinine 0.60 Glucose 176 H Calcium 9.2 Liver Function 12/23/21 Range/Units 07:37 Total Bilirubin 0.4 (0.2-1.0) mg/dl AST 13 (13-39) U/L ALT 9 (7-52) U/L Alkaline Phosphatase 127 H (34-104) U/L Albumin 3.6 (3.4-5.0) gm/dl Medications Administered Current Inpatient Medications Dextrose (Dextrose 50% 50 Ml Syringe) 25 - 50 ml IV UD PRN; Protocol PRN Reason: Hypoglycemia Protocol Stop: 01/18/22 21:51 Dicyclomine HCl (Dicyclomine Hcl 10 Mg Cap) 10 mg PO BID MARI Stop: 01/20/22 20:59 Last Admin: 12/23/21 07:29 Dose: 10 mg Documented by: Duloxetine HCl (Duloxetine Hcl 30 Mg Cap) 30 mg PO HS MARI Stop: 01/18/22 21:51 Last Admin: 12/22/21 20:24 Dose: 30 mg Documented by: Glucagon (Glucagon For Inj 1 Mg Vial) 1 mg SQ UD PRN; Protocol PRN Reason: Hypoglycemia Protocol Stop: 01/18/22 21:51 Glucose (Glucose 10 Tabs/Tube) 4 - 8 tabs PO UD PRN; Protocol PRN Reason: Hypoglycemia Protocol Stop: 01/18/22 21:51 Glucose (Glucose 40% Gel 15 Gm Tube) 15 - 30 gm PO UD PRN; Protocol PRN Reason: Hypoglycemia Protocol Stop: 01/18/22 21:51 Heparin Sodium (Porcine) (Heparin 100 Unit/Ml 5ml Flush) 5 ml FLUSH PRN PRN PRN Reason: Flush Stop: 01/19/22 04:01 Last Admin: 12/20/21 11:27 Dose: 5 ml Documented by: Heparin Sodium (Porcine) (Heparin Sod 5,000 Unit/0.5 Ml Vial) 5,000 units SQ Q12 MARI Stop: 01/20/22 20:59 Last Admin: 12/23/21 07:29 Dose: 5,000 units Documented by: Hydromorphone HCl (Hydromorphone Inj 0.5 Mg/0.5 Ml Syr) 0.5 mg IV Q3HWA PRN PRN Reason: Pain Stop: 12/25/21 11:36 Last Admin: 12/23/21 08:12 Dose: 0.5 mg Documented by: Famotidine 20 mg/ Syringe 5 mls @ 2.5 mls/min IV Q12H MARI Stop: 01/18/22 21:51 Last Admin: 12/23/21 07:28 Dose: 2.5 mls/min Documented by: Magnesium Sulfate/Dextrose (Magnesium Sulfate / D5w) 1 gm in 100 mls @ 50 mls/hr IV Q2H MARI Stop: 12/23/21 13:59 Insulin Aspart (Insulin Aspart Per Unit) 0 units SC ACHS MARI Stop: 01/19/22 19:59 Last Admin: 12/23/21 08:23 Dose: 6 units Documented by: Insulin Glargine (Insulin Glargine Solostar 100 Units/Ml 3 Ml Pen) 12 units SC QAM [facility] Stop: 01/22/22 08:59 Last Admin: 12/23/21 08:24 Dose: 12 units Documented by: Metoprolol Succinate (Metoprolol Succ 50mg Ext Rel Tab) 50 mg PO BID MARI Stop: 01/18/22 21:51 Last Admin: 12/23/21 07:30 Dose: 50 mg Documented by: Miscellaneous (Carbohydrates For Hypoglycemia ) 15 - 30 gm PO UD PRN PRN Reason: Hypoglycemia Protocol Stop: 01/18/22 21:51 Miscellaneous Information (Pharmacy Glycemic Mgmt Consult) 1 ea N/A UD PRN PRN Reason: Consult Stop: 01/19/22 17:34 Ondansetron HCl (Ondansetron Inj 2 Mg/Ml 2 Ml Vial) 4 mg IV Q6H PRN PRN Reason: Nausea Stop: 01/18/22 21:51 Last Admin: 12/22/21 14:55 Dose: 4 mg Documented by: Pantoprazole Sodium (Pantoprazole 40 Mg Tab) 40 mg PO BID [facility] Stop: 01/22/22 20:59 Polyethylene Glycol (Polyethylene (Miralax) 17 Gm Pack) 17 gm PO DAILY PRN PRN Reason: Constipation Stop: 01/18/22 21:51 Quetiapine Fumarate (Quetiapine Fumarate 25 Mg Tablet) 25 mg PO [facility] Stop: 01/18/22 21:51 Last Admin: 12/22/21 20:39 Dose: 25 mg Documented by: Ropinirole HCl (Ropinirole Hcl 0.25 Mg Tablet) 0.25 mg PO [facility] Stop: 01/18/22 21:51 Last Admin: 12/22/21 20:24 Dose: 0.25 mg Documented by: Tizanidine HCl (Tizanidine Hcl 4 Mg Tablet) 4 mg PO BID PRN PRN Reason: muscle spasms Stop: 01/18/22 21:51 Last Admin: 12/23/21 07:28 Dose: 4 mg Documented by:
[2021-12-23] MEDS: MAGNESIUM SULFATE / D5W 1 GM/100 ML BAG IV SCH ×2 (10:15→11:53)
--- NOTE | 2021-12-23 10:29 | Pharmacy Report ---
Pharmacy Glycemic Short Note 2 - Date of Service December 23, 2021 - Glycemic Short BSG Results (Last 24 hours): 12/22/21 12/22/21 12/22/21 11:32 16:44 20:26 Glucose POC Glucose 184 H 87 149 H 12/23/21 12/23/21 12/23/21 02:11 07:31 07:37 Glucose 176 H POC Glucose 176 H 156 H OUTPATIENT ANTIDIABETIC REGIMEN: * Tresiba 10 units SQ qAM * Novolog SS TIDWM HbA1C: 11.8% (12/20/21) ASSESSMENT: 12/23/21 * BSGs yesterday of 118, 184, 87, and 149 mg/dL, fasting BSG of 156 mg/dL * Received 23 units of insulin (10 units of basal and 11 units of prandial/correctional bolus) * Diet advanced to full liquid diet * Will increase Lantus ~20%, continue current Novolog parameters for now 12/22/21 * BSGs reasonably well-controlled yesterday while NPO * Received 7 units of Lantus and 7 units of correctional Novolog * NG tube clamped today, clear liquid diet initiated * Will give increased dose of Lantus at lunchtime and plan to go back to AM dosing tomorrow 12/21/21 * Pt is a 51 YOF with a history of uncontrolled DM2 admitted with intractable RLQ abdominal pain, nausea and vomiting. Pharmacy consulted to assist with glycemic management. * NPO since admission and BSGs down-trending into this AM. Given 15 units of Lantus last evening as BSGs were in 200s throughout the day yesterday on home regimen. Other stressors stable. * Lantus HS per scale pending HS BSG given remains NPO * Novolog q4h for correctional insulin (weight/stress 3)- will tighten based upon BSG trends. PLAN FOR INPATIENT GLYCEMIC CONTROL: * Hold outpatient oral diabetes medications * Basal insulin * Lantus 12 units SC daily * Bolus insulin * NovoLog per scale ACHS * Goal Range: Low 110 mg/dL - High 140 mg/dL * Correction Factor: 30 mg/dL/unit * Nutritional / Prandial insulin per carb ratio of 1 unit per 10 grams CHO consumed
[2021-12-23] MEDS: ONDANSETRON INJ 2 MG/ML 2 ML VIAL IV PRN (14:21)
[2021-12-23] MEDS: PANTOprazole 40 MG TAB PO SCH (21:10)
[2021-12-23] MEDS: DULoxetine HCL 30 MG CAP PO SCH (21:10)
[2021-12-23] MEDS: QUEtiapine FUMARATE 25 MG TABLET PO SCH (21:11)
[2021-12-23] MEDS: rOPINIRole HCL 0.25 MG TABLET PO SCH (22:07)
[2021-12-24] MEDS: HYDROmorphone INJ 0.5 MG/0.5 ML SYR IV PRN (04:03)
[2021-12-24] MEDS ORDERED: oxyCODONE HCL IR 5 MG TAB (IMMEDIATE RELEASE) PO PRN (07:59)
[2021-12-24] MEDS ORDERED: KETOROLAC TROMETHAMINE 15 MG/ML VIAL IV ONE (08:02)
[2021-12-24] MEDS ORDERED: ACETAMINOPHEN 325 MG TAB PO PRN (08:03)
[2021-12-24] MEDS: PANTOprazole 40 MG TAB PO SCH (08:19)
[2021-12-24] MEDS: DICYCLOMINE HCL 10 MG CAP PO SCH (08:19)
[2021-12-24] MEDS: METOPROLOL SUCC 50MG EXT REL TAB PO SCH (08:19)
[2021-12-24 08:21] LABS: Hematocrit (blood only) 36.7 % (37-47); Hemoglobin 12.3 g/dL (12.0-16.0); Mean Corpuscular Hemoglobin 29.8 pg (25-34); Mean Corpuscular Hgb Conc 33.5 g/dL (32-36); Mean Corpuscular Volume 88.9 fL (80-100); Mean Platelet Volume 9.9 fL (7.4-10.4); Platelet Count 266 K/uL (130-400); RDW Coefficient of Variation 13.6 % (11.5-14.5); RDW Standard Deviation 44.2 fL (36.4-46.3); Red Blood Count 4.13 M/uL (4.2-5.4); White Blood Count 6.12 K/uL (4.8-10.8)
[2021-12-24] MEDS: HEPARIN SOD 5,000 UNIT/0.5 ML VIAL SQ SCH (08:25)
[2021-12-24] MEDS: INSULIN ASPART PER UNIT SC SCH ×2 (08:28→12:45)
[2021-12-24] MEDS: INSULIN GLARGINE SOLOSTAR 100 UNITS/ML 3 ML PEN SC SCH (08:29)
[2021-12-24 08:40] LABS: Albumin Globulin Ratio 1.1 (0.9-2); Albumin Level 3.5 gm/dl (3.4-5.0); BUN Creatinine Ratio 9.1 (10-20); Bilirubin,Total 0.3 mg/dl (0.2-1.0); Creatinine Clr Calc Pharmacy 67.4 ml/min; Est GFR (African American) 88.2 ml/min; Est GFR (Non-African American) 76.1 ml/min; Globulin 3.2 gm/dl (2.5-4.0); Magnesium 1.5 mg/dl (1.7-2.4); Potassium 3.9 mmol/L (3.5-5.1); Total Protein 6.7 gm/dl (6.0-8.3)
--- NOTE | 2021-12-24 09:01 | Discharge Summary ---
Date of Service December 24, 2021 Admission HPI Per Admitting Provider worsened acute abdominal pain started 6p last night, followed by loose stool and then vomiting supper was at 3pm, sausage and potatoes au gratin-no one else sick around her with any gastroenteritis symptoms. she continued to produce bilious vomitus that was green all night and had severe nausea and centralized abdominal pain pain radiated around to her posterior like a belt this was exactly the same presentation she had last year 8 times and then 6 times the year before. Fever 100.1F last night some loose stool, not described as diarrhea. no CP or SOB nausea is not as bad curently and she reports the NGT, which was elective as no SBO is seen on imaging, has helped her pain dilaudid is also helping. no urinary issues. last surgery was hernia repair which was 2010 2008-adhesion removal where she had an intraoperative complication resulting in a partial bowel resection. she reports her blood sugars have been high lately and she presented with a sugar close to 500 today, better with IV insulin given in the ER reports no recent changes in her medications. Principal Diagnosis Intractable nausea/vomiting, resolved Acute on chronic abdominal pain Hypokalemia Hypomagnesemia Discharge Exam Patient has been tolerating a carbohydrate controlled diet Overnight blood pressure dropped after receiving IV dilaudid. Currently, she appears comfortable but again is asking for IV dilaudid. When I explained that since she will be going home today, and her BP dropped overnight after receiving IV dilaudid--> that we will no longer administer IV narcotics. I inquired what she takes at home for her chronic pain and she reports motrin, tylenol or vicodin. I offered her a dose of IV toradol, vicodin or a one time dose of PO oxycodone--> she declines and instead requests to be released home. Discharge Data Allergies Allergy/AdvReac Type Severity Reaction Status Date / Time ciprofloxacin [From Cipro] AdvReac Unknown Verified 12/19/21 15:07 Consultations 12/19/21 18:32 ED Decision to Admit Stat 12/20/21 09:46 Consult Gastroenterology Routine Ordered Studies 12/19/21 13:27 CT abd pelvis wo con Stat 12/21/21 08:00 FL small bowel follow through Routine 12/21/21 13:56 US duplex mesenteric Routine Hospital Course (1) Intractable vomiting with nausea: Small bowel series 12/21 were negative for obstruction Possible component of gastroparesis Nausea/vomiting relieved with NGT which was later discontinued when her symptoms resolved (2) Intractable right lower quadrant abdominal pain: Chronic. Likely from adhesions. Extensive workup here including CT abd/pelvis with contrast and mesenteric ultrasound were unrevealing. Urine culture suggests normal marii. She was tolerating a carbohydrate controlled diet at the time of discharge Would recommend follow up with her PCP and GI for further management of her chronic pain She was started on bentyl here by GI (3) DMII (diabetes mellitus, type 2): Uncontrolled A1C os 8.4 in Oct 2021 with it being around 9 since Fall 2020. A1c is 11.8 Insulin managed by glyemic pharmacist while here Would recommend small frequent meals (rather than larger meals) and follow up with PCP for further management of diabetes. Consider referral to endocrinology (4) Elevated blood pressure reading: Blood pressure elevated intermittently due to pain But otherwise has been normotensive on her home medication (5) Tachycardia: Likely related to dehydration and stress/pain. Resolved at time of discharge (6) Anxiety and depression: Chronic, stable. Cont Cymbalta and Seroquel per outpatient regimen. (7) Bipolar disorder: Chronic, stable. Cont seroquel per outpatient med regimen. (8) DVT prophylaxis: SQ heparin Hypokalemia Hypomagnesemia -repleted Total Time Total Time Spent Total Time Spent (In Minutes): 35 Discharge Plan Discharge Items Patient Disposition: Home - Self-Care Reason For Visit: N/V/ABD PAIN, TACHYCARDIA Discharge Diagnosis: Chronic RLQ abdominal pain Intractable nausea/vomiting, resolved Condition on Discharge: Good Activity: Resume your previous activity Non-emergency contact: Primary Care Provider Call non-emergency contact if: you have any medication questions and your symptoms worsen Follow-up/Referrals: King Braun MD [Primary Care Provider] - (Date & Time 12/28/2021 10:20 AM Provider King Braun MD [facility] ) Diet: Carb Consistent or DM2 Addtl Attending Provider Instructions: You came to the hospital for intractable nausea vomiting and worsening chronic RLQ abdominal pain You had extensive workup and imaging here which was unremarkable You were placed on bowel rest and did have an NG tube which helped your nausea/vomiting/pain At the time of discharge you were tolerating a diet Your chronic RLQ abdominal pain is likely due to adhesions, please follow up with your Primary Care physician for referrals and further evaluation You can follow up with Gastroenterology for your chronic abdominal pain as well Pending Studies at Discharge: No Stand-Alone Forms: My [facility], Smoking Cessation Medications and DC Order Prescriptions: New dicyclomine 10 mg Capsule 10 mg PO BID 30 Days Qty: 60 RF: 0 pantoprazole [Protonix] 40 mg tablet,delayed release (DR/EC) 40 mg PO DAILY Qty: 14 RF: 0 Continued quetiapine 25 mg Tablet 25 mg PO HS RF: 0 atorvastatin 80 mg Tablet 80 mg PO HS RF: 0 allopurinol 100 mg Tablet 100 mg PO QAM RF: 0 ropinirole 0.25 mg Tablet 0.25 mg PO HS RF: 0 fluticasone propionate 50 mcg/actuation [place],Suspension 1 spray INTRANASAL BID RF: 0 tizanidine [Zanaflex] 4 mg Capsule 4 mg PO BID RF: 0 Tresiba FlexTouch U-100 100 unit/mL (3 mL) insulin pen 10 unit SUBCUT QAM RF: 0 duloxetine 30 mg Capsule, Delayed Rel Sprinkle 30 mg PO HS RF: 0 docusate sodium [Colace] 100 mg capsule 100 mg PO BID Qty: 30 RF: 0 ondansetron 8 mg tablet,disintegrating 8 mg translingual DAILY PRN (Reason: Nausea And Vomiting) RF: 0 insulin aspart U-100 100 unit/mL (3 mL) insulin pen 0 sliding scale dose SUBCUT UD RF: 0 metoprolol succinate 50 mg tablet extended release 24 hr 50 mg PO BID RF: 0 potassium chloride [Klor-Con M20] 20 mEq tablet,ER particles/crystals 20 meq PO DAILY RF: 0 magnesium oxide 250 mg magnesium Tablet 250 mg PO DAILY RF: 0 famotidine 20 mg tablet 20 mg PO BID Qty: 20 RF: 0 Discharge Orders: Discharge Order (Routine); Ordered 12/24/21 Ordered By: Robby Babb Admission Data Admit Date/Time: 12/19/21 18:39 Attending Provider: Robby Babb Admit Provider: Shruthi Castle Primary Care Provider: King Braun Other Providers: Erica Feliz I. ; Shruthi Castle ; Gene Rodriguez
[2021-12-24] MEDS: MAGNESIUM SULFATE / D5W 1 GM/100 ML BAG IV SCH ×2 (09:19→11:19)
[2021-12-24] MEDS: FAMOTIDINE 20 MG in SYRINGE 3 ML IV SCH (12:45)
== END 2021-12-24 13:39 | disposition home or self-care (01) | DRG 74 ==
LOC: ED 11:43 → SUATTDRO 18:39 → 1E 18:39 → 2N 12-21 21:39
DX: E11.43 Type 2 diabetes mellitus with diabetic autonomic (poly)neuropathy; K21.9 Gastro-esophageal reflux disease without esophagitis; E83.42 Hypomagnesemia; F41.8 Other specified anxiety disorders; K66.0 Peritoneal adhesions (postprocedural) (postinfection); Z88.1 Allergy status to other antibiotic agents; E87.6 Hypokalemia; E11.65 Type 2 diabetes mellitus with hyperglycemia; G43.909 Migraine, unspecified, not intractable, without status migrainosus; Z79.4 Long term (current) use of insulin; R00.0 Tachycardia, unspecified; F31.9 Bipolar disorder, unspecified